=== PATIENT | female | born 1935 | race Caucasian/White ===

== ENCOUNTER 2016-07-06 12:11 | Emergency (ER) | payer MEDICARE, MEDICAID ==
[~2016-07-06] VITALS: Ht 167.6 cm; Wt 76.7 kg
[~2016-07-06 12:11] MED LIST: ASPI-869 PO; CLOP75TA2 PO; FAMO40TA7 PO
[2016-07-06 12:12] VITALS: BP 105/76
--- NOTE | 2016-07-06 12:23 | NUR ---
JOSE G WILDE AT BEDSIDE FOR EVAL.
[2016-07-06] MEDS ORDERED: KETOROLAC TROMETHAMINE INJ 30 MG/ML VIAL ONE (12:47)
[2016-07-06] MEDS: KETOROLAC TROMETHAMINE INJ 60 MG/2 ML VIAL IM ONE (12:54)
--- NOTE | 2016-07-06 13:45 | NUR ---
PT ROAD TESTED. AMBULATED W/ STEADY GAIT. JOSE G WILDE AWARE.
--- NOTE | 2016-07-06 13:52 | NUR ---
CALLED [facility] FOR TRANSPORTATION TO [facility] ETA [id number]
== END 2016-07-06 15:21 | disposition home or self-care (01) ==
LOC: ER 12:13
DX: S39.012A Strain of muscle, fascia and tendon of lower back, initial encounter (principal); F32.9 Major depressive disorder, single episode, unspecified; F41.9 Anxiety disorder, unspecified; Z79.82 Long term (current) use of aspirin; Z86.73 Personal history of transient ischemic attack (TIA), and cerebral infarction without residual deficits; Z95.5 Presence of coronary angioplasty implant and graft; X58.XXXA Exposure to other specified factors, initial encounter; Y92.89 Other specified places as the place of occurrence of the external cause; Y93.89 Activity, other specified; Y99.8 Other external cause status
CPT/HCPCS: 96372; 99283; A4606; J1885; Z7610

== ENCOUNTER 2017-04-01 15:40 | Inpatient (IN) | payer MEDICARE, MEDICAID ==
[~2017-04-01] VITALS: Ht 144.8 cm; Wt 81.6 kg
[~2017-04-01 15:40] MED LIST changes: +CLOP75TA15 PO; -CLOP75TA2 PO
--- NOTE | 2017-04-01 16:30 | NUR ---
BIB PRIVATE EMT FOR COUGH AND CONGESTION,DR HAAS WANTS INFLUENZA SWAB. A/OX3, NAD VSS RR EVEN AND UNLABORED. KEPT COFMORTABLE. SEEN AND EVALUATED BY ER
[2017-04-01 16:33] LABS: BASOPHILS % (AUTO) 0.3 % (0.0-2.0); EOSINOPHILS % (AUTO) 0.9 % (0.0-6.0); HEMATOCRIT 42 % (33-45); HEMOGLOBIN 13.7 g/dL (11.5-14.8); LYMPHOCYTES # (AUTO) 0.4 /CMM (0.8-4.8); LYMPHOCYTES % (AUTO) 8.8 % (20.0-44.0); MEAN CORPUSCULAR HEMOGLOBIN 29 PG (26.0-33.0); MEAN CORPUSCULAR HGB CONC 33 g/dl (31.0-36.0); MEAN CORPUSCULAR VOLUME 87 fL (82-100); MONOCYTES # (AUTO) 0.4 /CMM (0.1-1.30); MONOCYTES % (AUTO) 8.3 % (2.0-12.0); NEUTROPHILS # (AUTO) 3.7 /CMM (1.8-8.9); NEUTROPHILS % (AUTO) 81.7 % (43.0-81.0); PLATELET COUNT (AUTO) 201 /CMM (150-450); RDW COEFFICIENT OF VARIATION 13.4 (11.5-15.0); RED BLOOD CELL COUNT(AUTO) 4.79 MIL/uL (4.0-5.2); WHITE BLOOD COUNT (AUTO) 4.5 K/uL (4.3-11.0)
[2017-04-01 16:44] LABS: CALCIUM, SERUM 8.9 mg/dL (8.5-10.1); CARBON DIOXIDE 27 mmol/L (21-32); CHLORIDE 103 mmol/L (98-107); GLUCOSE 115 mg/dL (74-106); POTASSIUM 3.9 mmol/L (3.5-5.1); SODIUM SERUM 140 mmol/L (136-145); UREA NITROGEN, BLOOD 14 mg/dL (7-18)
[2017-04-01 16:50] LABS: ALANINE AMINOTRANSFERASE 22 U/L (12-78); ALBUMIN 3.4 g/dL (3.4-5.0); ALKALINE PHOSPHATASE 109 U/L (46-116); ASPARTATE AMINOTRANSFERASE 23 U/L (15-37); BILIRUBIN,DIRECT 0.1 mg/dL (0.0-0.2); BILIRUBIN,TOTAL 0.4 mg/dL (0.2-1.0); TOTAL PROTEIN, SERUM 7.2 g/dL (6.4-8.2)
[2017-04-01 16:52] LABS: TROPONIN I < 0.017 ng/mL (0.00-0.056)
[2017-04-01 16:55] LABS: INR 0.96 (0.87-1.13)
[2017-04-01] MEDS ORDERED: PRAM0.253 PO (16:57)
[2017-04-01] MEDS ORDERED: FLUT12AE5 IH (16:57)
[2017-04-01] MEDS ORDERED: TRAM50TA2 PO (16:57)
[2017-04-01] MEDS ORDERED: ESOM40CA PO (16:57)
[2017-04-01] MEDS ORDERED: AMLO10TA2 PO (16:57)
[2017-04-01] MEDS ORDERED: TRAZ-144 PO (16:57)
[2017-04-01] MEDS ORDERED: ALBU18HF2 IH (16:57)
[2017-04-01] MEDS ORDERED: SIMV40TA5 PO (16:57)
[2017-04-01] MEDS ORDERED: CEFTRIAXONE 1GM BAG (ER ONLY) 50 ML IV ONE ×2 (17:00→17:04)
[2017-04-01] MEDS ORDERED: AZITHROMYCIN 500 MG in IV D5W 250 ML IV ONE (17:00)
[2017-04-01] MEDS ORDERED: OSELTAMIVIR PHOSPHATE 75 MG CAPSULE PO ONE (17:00)
[2017-04-01] MEDS ORDERED: OSELTAMIVIR PHOSPHATE 75 MG CAPSULE ONE (17:05)
--- NOTE | 2017-04-01 17:11 | NUR ---
TELE ROOM 304-2
[2017-04-01] MEDS ORDERED: IPRATROPIUM NEB FS 0.5 MG/2.5 ML AMPUL.NEB ONE (17:15)
[2017-04-01] MEDS ORDERED: ALBUTEROL FS 2.5 MG/3 ML VIAL.NEB ONE (17:15)
[2017-04-01] MEDS ORDERED: IPRATROPIUM NEB FS 0.5 MG/2.5 ML AMPUL.NEB NEB ONE (17:30)
[2017-04-01] MEDS ORDERED: ALBUTEROL FS 2.5 MG/3 ML VIAL.NEB NEB ONE (17:30)
--- NOTE | 2017-04-01 17:38 | NUR ---
REPORT GIVEN TO SCOT CASTAÑEDA FOR CONT OF CARE
[2017-04-01] MEDS ORDERED: ALBUTEROL FS 2.5 MG/3 ML VIAL.NEB NEB PRN (18:00)
[2017-04-01] MEDS ORDERED: Z GUARD REMEDY 2 OZ OINT TP PRN (18:00)
[2017-04-01] MEDS ORDERED: MAG HYDROX/AL HYDROX/SIMETH 30 ML UDC PO PRN (18:00)
[2017-04-01] MEDS ORDERED: MAGNESIUM HYDROXIDE 30 ML UDC PO PRN (18:00)
[2017-04-01] MEDS ORDERED: ACETAMINOPHEN 325 MG TABLET PO PRN (18:00)
[2017-04-01] MEDS ORDERED: ALBUTEROL SULFATE 8 GM HFA.AER.AD IH PRN (18:00)
[2017-04-01] MEDS ORDERED: TRAMADOL HCL 50 MG TABLET PO PRN (18:00)
[2017-04-01] MEDS ORDERED: ONDANSETRON HCL/PF 4 MG/2 ML VIAL IVP PRN (18:00)
--- NOTE | 2017-04-01 18:01 | NUR ---
TRANSFERRED TO FLOOR VIA ACLS PROTOCOL
--- NOTE | 2017-04-01 18:20 | NUR ---
EDITOR NEWS NOTES RECEIVED PATIENT IN BED SEEN AMBULATING TO USE BATHROOM. PATIENT ALERT, ORIENTED X3. NOTED WITH PRODUCTIVE COUGH. PATIENT WITH PERIPHERAL IV ON LEFT AC INTACT PATENT. PATIENT ORIENTED TO ROOM. CALL LIGHT WITHIN REACH . BED IN LOW LOCKED POSITION. WILL CONTINUE TO MONITOR.
[2017-04-01] MEDS: IV D5W 1,000 ML IV PRN (18:29)
[2017-04-01] MEDS: PRAMIPEXOLE DI-HCL 0.25 MG TABLET PO SCH (18:31)
[2017-04-01] MEDS: ENOXAPARIN SODIUM 30 MG/0.3 ML DISP.SYRIN SQ SCH (18:31)
[2017-04-01] MEDS: PIPERACILLIN /TAZOBACTAM 3.375 G in IV D5W 50 ML IV SCH (19:14)
--- NOTE | 2017-04-01 19:30 | NUR ---
RN OPENING NOTES PATIENT IS SLEEPING IN BED, EASY TO AROUSE, ALERT AND ORIENTED X3. VS STABLE. NO SOB NOTED. RESPIRATIONS EVEN AND UNLABORED. IV ACCESS ON LAC PATENT AND INTACT. NO REDNESS OR INFILTRATION NOTED. TELE MONITOR IS IN PLACE, SR 80 BMP. BED IN LOW AND LOCKED POSITION, SIDE RAILS X2. CALL LIGHT WITHIN EASY REACH. WILL CONTINUE TO MONITOR AND ASSESS DURING THE SHIFT.
--- NOTE | 2017-04-01 19:30 | NUR ---
RN OPENING NOTES PATIENT IS SLEEPING IN BED, EASY TO AROUSE, ALERT AND ORIENTED X3. VS STABLE. NO SOB NOTED. RESPIRATIONS EVEN AND UNLABORED. IV ACCESS ON LAC PATENT AND INTACT, INFUSING NS AT 75 ML/HR. NO RED NE
--- NOTE | 2017-04-01 19:38 | NUR ---
MARINE STEWARD NOTES PATIENT IN BED RESTING NO SOB OR ACUTE DISTRESS NOTED. ALL DUE MEDICATIONS ADMINISTERED. ALL NEEDS MET. PATIENT NOTED EATING DINNER. WILL ENDORSE CARE TO PM SHIFT.
[2017-04-01 20:00] VITALS: BP_SYST 125; BP_SYST 131; BP_DIAS 51; BP_DIAS 85
[2017-04-01] MEDS ORDERED: PIPERACILLIN /TAZOBACTAM 4.5 G in IV D5W 50 ML IV SCH (21:00)
[2017-04-01] MEDS: SIMVASTATIN 40 MG TABLET PO SCH (22:05)
[2017-04-01] MEDS: TRAZODONE 50 MG TABLET PO SCH (22:05)
[2017-04-01] MEDS: GUAIFENESIN/D-METHORPHAN HB 5 ML UDC PO PRN (22:27)
[2017-04-02] VITALS: BP 141/78
[2017-04-02] MEDS: PIPERACILLIN /TAZOBACTAM 3.375 G in IV D5W 50 ML IV SCH ×5 (00:43→23:31)
[2017-04-02 04:00] VITALS: BP 121/59
[2017-04-02 06:30] LABS: BASOPHILS % (AUTO) 0.6 % (0.0-2.0); EOSINOPHILS % (AUTO) 1.2 % (0.0-6.0); HEMATOCRIT 37 % (33-45); HEMOGLOBIN 12.4 g/dL (11.5-14.8); LYMPHOCYTES # (AUTO) 0.7 /CMM (0.8-4.8); LYMPHOCYTES % (AUTO) 19.8 % (20.0-44.0); MEAN CORPUSCULAR HEMOGLOBIN 29 PG (26.0-33.0); MEAN CORPUSCULAR HGB CONC 33 g/dl (31.0-36.0); MEAN CORPUSCULAR VOLUME 87 fL (82-100); MONOCYTES # (AUTO) 0.4 /CMM (0.1-1.30); MONOCYTES % (AUTO) 12.2 % (2.0-12.0); NEUTROPHILS # (AUTO) 2.2 /CMM (1.8-8.9); NEUTROPHILS % (AUTO) 66.2 % (43.0-81.0); PLATELET COUNT (AUTO) 169 /CMM (150-450); RDW COEFFICIENT OF VARIATION 13.2 (11.5-15.0); RED BLOOD CELL COUNT(AUTO) 4.25 MIL/uL (4.0-5.2); WHITE BLOOD COUNT (AUTO) 3.3 K/uL (4.3-11.0)
[2017-04-02] MEDS: GUAIFENESIN/D-METHORPHAN HB 5 ML UDC PO PRN (06:41)
[2017-04-02 06:55] LABS: CALCIUM, SERUM 8.3 mg/dL (8.5-10.1); CARBON DIOXIDE 28 mmol/L (21-32); CHLORIDE 104 mmol/L (98-107); GLUCOSE 95 mg/dL (74-106); MAGNESIUM 1.8 mg/dL (1.8-2.4); PHOSPHORUS 4.3 mg/dL (2.5-4.9); POTASSIUM 3.7 mmol/L (3.5-5.1); SODIUM SERUM 139 mmol/L (136-145); UREA NITROGEN, BLOOD 12 mg/dL (7-18)
--- NOTE | 2017-04-02 07:00 | NUR ---
RN CLOSING NOTES PATIENT IS IN BED, ALERT AND ORIENTED X3. VS STABLE. RESPIRATIONS EVEN AND UNLABORED. IV ACCESS ON LAC PATENT AND INTACT. NO REDNESS OR INFILTRATION NOTED. TELE MONITOR IS IN PLACE, SR 72 BMP. NON PRODUCTIVE COUGH NOTED, ROBITUSSIN 5 ML ADMINISTERED. ALL NEEDS ARE MET AND MEDICATIONS ADMINISTERED PER MD ORDER. BED IN LOW AND LOCKED POSITION, SIDE RAILS X2. CALL LIGHT WITHIN EASY REACH. WILL ENDORSE TO RN DAY SHIFT FOR JUNI.
[2017-04-02 08:00] VITALS: BP 110/51
[2017-04-02] MEDS: AMLODIPINE BESYLATE 10 MG TABLET PO SCH (09:00)
[2017-04-02] MEDS: FLUTICASONE 110MCG 1 EA INHALER IH SCH ×2 (09:42→17:35)
[2017-04-02] MEDS: HYDROCODONE/APAP 5/325MG 1 EACH TABLET PO PRN ×2 (12:45→17:49)
--- NOTE | 2017-04-02 15:15 | NUR ---
CORDARONE NOT GIVEN,SON STATES HAD IN AM. Addendum: 04/02/17 at 1516 by TONA SELBY RN INFO TO BE ON ANOTHER PT.
[2017-04-02 16:00] VITALS: BP 113/57
[2017-04-02] MEDS: OSELTAMIVIR PHOSPHATE 75 MG CAPSULE PO SCH ×2 (17:35→21:09)
[2017-04-02] MEDS: PRAMIPEXOLE DI-HCL 0.25 MG TABLET PO SCH (17:36)
--- NOTE | 2017-04-02 18:30 | NUR ---
MEDICATED X 2 FOR BACK PAIN WITH NORCO.PT. STATUS QUO.VERY COOPERATIVE AND MED COMPLIANT.
--- NOTE | 2017-04-02 19:40 | NUR ---
MS RN INITIAL NOTES PT IS IN BED SLEEPING, EASILY AROUSED. STATES THAT SHE IS FEELING BETTER AFTER THE MEDICATIONS GIVEN ON DAY SHIFT. IV ACCESS IS INTACT AND PATENT. PT IS NOT COUGHING AT THE MOMENT.BED IS IN LOW AND LOCKED POSITION, CALL LIGHT WITHIN REACH. WILL CONTINUE TO MONITOR PT.
[2017-04-02 19:53] VITALS: BP 112/61
[2017-04-02] MEDS: TRAZODONE 50 MG TABLET PO SCH (21:09)
[2017-04-02] MEDS: IV D5W 1,000 ML IV PRN (21:09)
[2017-04-02] MEDS: SIMVASTATIN 40 MG TABLET PO SCH (21:09)
[2017-04-02] MEDS: ENOXAPARIN SODIUM 30 MG/0.3 ML DISP.SYRIN SQ SCH (21:11)
[2017-04-03] MEDS: HYDROCODONE/APAP 5/325MG 1 EACH TABLET PO PRN ×4 (00:56→20:39)
[2017-04-03] MEDS: PIPERACILLIN /TAZOBACTAM 3.375 G in IV D5W 50 ML IV SCH ×4 (05:17→23:30)
--- NOTE | 2017-04-03 06:11 | NUR ---
MS RN CLOSING NOTES PT IS IN BED SLEEPING, EASILY AROUSED. NO SIGNS OF SOB OR DISTRESS, BREATHING EVENLY AND UNLABORED WITH NC. NEW IV WAS STARTED ON LEFT WRIST, WITH FLUIDS INFUSING. NO ACUTE CHANGES THROUGHOUT THE SHIFT. ALL NEEDS WERE ANTICIPATED AND MET. BED IS IN LOW AND LOCKED POSITION CALL LIGHT WITHIN REACH, WILL ENDORSE TO DAYSHIFT.
[2017-04-03 06:42] LABS: BASOPHILS % (AUTO) 0.7 % (0.0-2.0); EOSINOPHILS # (AUTO) 0.1 /CMM (0.0-0.7); EOSINOPHILS % (AUTO) 4.5 % (0.0-6.0); HEMATOCRIT 38 % (33-45); HEMOGLOBIN 12.5 g/dL (11.5-14.8); LYMPHOCYTES # (AUTO) 1.3 /CMM (0.8-4.8); LYMPHOCYTES % (AUTO) 43.7 % (20.0-44.0); MEAN CORPUSCULAR HEMOGLOBIN 29 PG (26.0-33.0); MEAN CORPUSCULAR HGB CONC 33 g/dl (31.0-36.0); MEAN CORPUSCULAR VOLUME 87 fL (82-100); MONOCYTES # (AUTO) 0.4 /CMM (0.1-1.30); MONOCYTES % (AUTO) 14.5 % (2.0-12.0); NEUTROPHILS # (AUTO) 1.1 /CMM (1.8-8.9); NEUTROPHILS % (AUTO) 36.6 % (43.0-81.0); PLATELET COUNT (AUTO) 177 /CMM (150-450); RDW COEFFICIENT OF VARIATION 13.6 (11.5-15.0); WHITE BLOOD COUNT (AUTO) 2.9 K/uL (4.3-11.0)
[2017-04-03 07:05] LABS: CARBON DIOXIDE 29 mmol/L (21-32); CHLORIDE 104 mmol/L (98-107); CREATININE 0.9 mg/dL (0.6-1.3); GLUCOSE 95 mg/dL (74-106); MAGNESIUM 1.9 mg/dL (1.8-2.4); PHOSPHORUS 4.1 mg/dL (2.5-4.9); POTASSIUM 3.7 mmol/L (3.5-5.1); SODIUM SERUM 140 mmol/L (136-145); UREA NITROGEN, BLOOD 13 mg/dL (7-18)
--- NOTE | 2017-04-03 07:31 | NUR ---
MS RN: INITIAL NOTE RECEIVED PT A/OX3. MS. USES DIAPER. AMBULATES WITH ASSIST. VISION IS NORMALLY BLURRED. SKIN INTACT. L WRIST #22 RUNNING D5 @ 70ML/HR. SITE CLEAR AND PATENT. NO DISTRESS NOTED. NO SOB NOTED. NO PAIN NOTED. RESTING COMFORTABLY IN BED. CALL LIGHT WITHIN REACH.
[2017-04-03 08:00] VITALS: BP 117/54
[2017-04-03] MEDS: OSELTAMIVIR PHOSPHATE 75 MG CAPSULE PO SCH ×2 (08:23→17:13)
[2017-04-03] MEDS: AMLODIPINE BESYLATE 10 MG TABLET PO SCH (08:24)
[2017-04-03] MEDS: FLUTICASONE 110MCG 1 EA INHALER IH SCH ×2 (08:24→17:14)
[2017-04-03 09:49] LABS: BAND % (MANUAL) 1 % (0.0-5.0); EOSINOPHILS % (MANUAL) 1 % (0-4); LYMPHOCYTES % (MANUAL) 47 % (16-48); MONOCYTES % (MANUAL) 4 % (0-11.0); NEUTROPHILS % (MANUAL) 47 (42-76)
[2017-04-03] MEDS: IV D5W 1,000 ML IV PRN (11:55)
[2017-04-03] MEDS ORDERED: HYDROCODONE BIT/HOMATROPINE 5 ML UDC PO PRN (15:00)
[2017-04-03] MEDS: PRAMIPEXOLE DI-HCL 0.25 MG TABLET PO SCH (17:13)
[2017-04-03 17:55] VITALS: BP 133/82
[2017-04-03 18:36] VITALS: BP 133/82
--- NOTE | 2017-04-03 18:37 | NUR ---
MS RN: CLOSING NOTE PT TOOK ALL MEDICATIONS ON TIME. NO ADVERSE REACTIONS NOTED. PAIN CONTROLLED WITH PAIN MEDICATIONS. NO DISTRESS NOTED. NO SOB NOTED. ON 2L NS SATING AT 95%. A/OX3. HAS MACULAR DEGENERATION. CAN SEE ONLY PERIPHERALLY. SEES SHADOWS OTHERWISE. CONTINENT. USES DIAPER AND BRP WITH ASSIST. AMBULATES WITH ASSIST. L WRSOT #22 RUNNING D5 @75ML/HR. SITE CLEAR AND PATENT. RESTING COMFORTABLY IN BED. CALL LIGHT WITHIN REACH.
[2017-04-03 20:00] VITALS: BP 119/65
--- NOTE | 2017-04-03 20:01 | NUR ---
RN NOTES RECEIVED PATIENT IN BED, ALERT AND ORIENTED X3, CALM, NO SOB, NO DISTRESS, NO COMPLAIN OF PAIN AT THIS TIME, TOLERATING 2LPM VIA NC, HYO572%, LEFT WRIST PERIPHERAL LINE IS PATENT AND INFUSING WELL, WITH MACULAR DEGENERATION, ABLE TO SEE PERIPHERALLY, REQUIRES ASSISTANCE WITH AMBULATION. REPOSITIONED FOR COMFORT, CALL LIGHT WITHIN REACH.
[2017-04-03 20:06] VITALS: BP 119/65
[2017-04-03] MEDS: ENOXAPARIN SODIUM 30 MG/0.3 ML DISP.SYRIN SQ SCH (20:35)
[2017-04-03] MEDS: SIMVASTATIN 40 MG TABLET PO SCH (21:16)
[2017-04-03] MEDS: TRAZODONE 50 MG TABLET PO SCH (21:16)
[2017-04-04] MEDS: HYDROCODONE/APAP 5/325MG 1 EACH TABLET PO PRN ×3 (02:27→13:43)
[2017-04-04] MEDS: IV D5W 1,000 ML IV PRN (02:35)
[2017-04-04] MEDS: PIPERACILLIN /TAZOBACTAM 3.375 G in IV D5W 50 ML IV SCH (06:14)
--- NOTE | 2017-04-04 06:44 | NUR ---
RN NOTES PATIENT IN BED, ALERT AND AWAKE, NO SOB, NO DISTRESS, TOLERATING 2LPM VIA NC, PROVIDED PAIN MEDICATION DURING SHIFT, NO RESIDUAL DROWSINESS FROM NORCO, PROVIDED GOOD PERINEAL CARE, ALL NEEDS ATTENDED, CALL LIGHT WITHIN REACH.
--- NOTE | 2017-04-04 07:45 | NUR ---
RN OPENING NOTES RECEIVED PT. IN BED SLEEPING. BREATHING UNLABORED, AND EVENLY ON OXYGEN AT 2L/MIN. NO S/S OF ACUTE DISTRESS. IV FLUIDS RUNNING AT 75 ML/HR. BED IS IN LOWEST, AND LOCKED POSITION. 2 SIDE RAILS UP, AND CALL LIGHT WITHIN REACH. WILL CONTINUE TO ASSESS AND MONITOR.
[2017-04-04 08:00] VITALS: BP 112/57
[2017-04-04 08:35] VITALS: BP 112/57
[2017-04-04] MEDS: OSELTAMIVIR PHOSPHATE 75 MG CAPSULE PO SCH (08:35)
[2017-04-04] MEDS: AMLODIPINE BESYLATE 10 MG TABLET PO SCH (08:35)
[2017-04-04] MEDS: FLUTICASONE 110MCG 1 EA INHALER IH SCH (08:37)
[2017-04-04] MEDS ORDERED: IV D5W 1,000 ML IV PRN (11:27)
--- NOTE | 2017-04-04 14:12 | NUR ---
RN NOTES PT. WAS HAVING DIARRHEA THIS MORNING. REPORTED EPISODE TO DR. HAAS VIA PHONE, NO NEW ORDERS GIVEN BEFORE DISCHARGE. EXPLAINED TO PT. TO FOLLOW UP WITH DR. HAAS OUTPATIENT AND PT. VERBALIZED UNDERSTANDING.
--- NOTE | 2017-04-04 14:14 | NUR ---
PRACTICAL NURSING INSTRUCTOR NOTES PROVIDED PT. DISCHARGE INSTRUCTIONS AND EDUCATIONS, AND PT. VERBALIZED UNDERSTANDING. . DISCHARGE PAPERS SIGNED. PT. WAS DISCHARGED IN MEDICALLY STABLE CONDITION BY AMBULANCE CREW. REPORT WAS GIVEN TO VALENTE AT [facility]. TALKED TO PT.'S SON, JOCELYN TO INFORM ABOUT TRANSFER TODAY. ALL QUESTIONS ANSWERED. BELONGINGS LIST WAS CHECKED AND SIGNED. ID BAND, AND IV WAS REMOVED WITHOUT COMPLICATIONS. MEDICATIONS, AND MEDICATION LIST WAS GIVEN TO PT. WITH ALL DISCHARGE PAPERS SIGNED IN PACKET.
== END 2017-04-04 14:36 | DRG 193 ==
LOC: ER 15:42 → TELE 17:47 → MED 04-02 08:58
PROVIDERS: ADMIT Internal Medicine; ATTEND Internal Medicine
DX: J12.9 Viral pneumonia, unspecified (principal); J96.90 Respiratory failure, unspecified, unspecified whether with hypoxia or hypercapnia; I82.409 Acute embolism and thrombosis of unspecified deep veins of unspecified lower extremity; D70.9 Neutropenia, unspecified; E44.1 Mild protein-calorie malnutrition; J44.0 Chronic obstructive pulmonary disease with (acute) lower respiratory infection; J10.08 Influenza due to other identified influenza virus with other specified pneumonia; I10 Essential (primary) hypertension; Z86.73 Personal history of transient ischemic attack (TIA), and cerebral infarction without residual deficits; Z79.899 Other long term (current) drug therapy; Z79.82 Long term (current) use of aspirin; K21.9 Gastro-esophageal reflux disease without esophagitis; Z79.51 Long term (current) use of inhaled steroids; I25.10 Atherosclerotic heart disease of native coronary artery without angina pectoris; F41.9 Anxiety disorder, unspecified; E78.5 Hyperlipidemia, unspecified; F32.9 Major depressive disorder, single episode, unspecified; J20.9 Acute bronchitis, unspecified; G25.81 Restless legs syndrome; G89.29 Other chronic pain; R53.81 Other malaise; Z96.659 Presence of unspecified artificial knee joint; E66.9 Obesity, unspecified; Z68.39 Body mass index [BMI] 39.0-39.9, adult
CPT/HCPCS: 36415; 71010-TC; 80048-TC; 80076-TC; 83605-TC; 83735-TC; 84100-TC; 84484-TC; 85025-TC; 85730-TC; 87040-TC; 87081-TC; 87400; J0456; J0696; J1650; J2543; J7060; J7070

== ENCOUNTER 2017-04-23 16:50 | Emergency (ER) | payer MEDICARE, MEDICAID ==
[~2017-04-23] VITALS: Ht 165.1 cm; Wt 81.6 kg
[~2017-04-23 16:50] MED LIST changes: +ALBU18HF2 IH; +AMLO10TA2 PO; -ASPI-869 PO; -CLOP75TA15 PO; +ESOM40CA PO; -FAMO40TA7 PO; +FLUT12AE5 IH; +PRAM0.253 PO; +SIMV40TA5 PO; +TRAM50TA2 PO; +TRAZ-144 PO
[2017-04-23 17:47] LABS: BASOPHILS # (AUTO) 0.3 /CMM (0.0-0.2); BASOPHILS % (AUTO) 3.4 % (0.0-2.0); EOSINOPHILS # (AUTO) 0.1 /CMM (0.0-0.7); EOSINOPHILS % (AUTO) 1.9 % (0.0-6.0); HEMATOCRIT 41 % (33-45); LYMPHOCYTES # (AUTO) 1.4 /CMM (0.8-4.8); LYMPHOCYTES % (AUTO) 18.5 % (20.0-44.0); MEAN CORPUSCULAR HEMOGLOBIN 29 PG (26.0-33.0); MEAN CORPUSCULAR HGB CONC 34 g/dl (31.0-36.0); MEAN CORPUSCULAR VOLUME 85 fL (82-100); MONOCYTES # (AUTO) 0.6 /CMM (0.1-1.30); MONOCYTES % (AUTO) 8.8 % (2.0-12.0); NEUTROPHILS % (AUTO) 67.4 % (43.0-81.0); PLATELET COUNT (AUTO) 277 /CMM (150-450); RDW COEFFICIENT OF VARIATION 12.4 (11.5-15.0); RED BLOOD CELL COUNT(AUTO) 4.87 MIL/uL (4.0-5.2); WHITE BLOOD COUNT (AUTO) 7.4 K/uL (4.3-11.0)
[2017-04-23 17:56] LABS: CALCIUM, SERUM 9.6 mg/dL (8.5-10.1); CARBON DIOXIDE 28 mmol/L (21-32); CHLORIDE 98 mmol/L (98-107); CREATININE 0.9 mg/dL (0.6-1.3); GLUCOSE 102 mg/dL (74-106); POTASSIUM 4.1 mmol/L (3.5-5.1); SODIUM SERUM 133 mmol/L (136-145); UREA NITROGEN, BLOOD 12 mg/dL (7-18)
[2017-04-23] MEDS: DIAZEPAM 10 MG TABLET PO ONE (18:37)
--- NOTE | 2017-04-23 20:53 | NUR ---
CALLED DR CLARKE ANSWERING SERVICE, LEFT A VOICEMAIL.
[2017-04-23] MEDS: MAGNESIUM OXIDE 400 MG TABLET PO ONE (21:23)
--- NOTE | 2017-04-23 22:16 | NUR ---
REPORT GIVEN TO EMT
[2017-04-23 22:17] VITALS: BP 162/97
== END 2017-04-23 22:18 ==
LOC: ER 16:51
DX: F41.9 Anxiety disorder, unspecified (principal); M62.838 Other muscle spasm; E83.42 Hypomagnesemia; E78.5 Hyperlipidemia, unspecified; F32.9 Major depressive disorder, single episode, unspecified; G43.909 Migraine, unspecified, not intractable, without status migrainosus; F10.10 Alcohol abuse, uncomplicated; G89.29 Other chronic pain; R51 Headache; I10 Essential (primary) hypertension; I25.10 Atherosclerotic heart disease of native coronary artery without angina pectoris; J32.3 Chronic sphenoidal sinusitis; Z86.73 Personal history of transient ischemic attack (TIA), and cerebral infarction without residual deficits
CPT/HCPCS: 36415; 70450; 80048; 83735; 85025; 99285; A4606; Z7610

== ENCOUNTER 2018-03-25 09:44 | Inpatient (IN) | payer MEDICARE, MEDICAID ==
[~2018-03-25] VITALS: Ht 144.8 cm; Wt 96.2 kg
[~2018-03-25 09:44] MED LIST changes: -AMLO10TA2 PO; +AMLO10TA6 PO; -TRAZ-144 PO; +TRAZ-182 PO
--- NOTE | 2018-03-25 09:56 | NUR ---
ARIELA 82 YEAR OLD FEMALE FROM [facility] C/O PAINFUL URINATION COMPLETED ATB FOR UTI LAST SATURDAY. ALERT AND OREINTED X4, BREATHING EVEN AND UNALBORED. PATIENT ABLE TO AMBULATE WITH ASSIST. NOTED WITH BLE EDEMA AND DRY SKIN. AWAITNG TO BE SEEN BY
[2018-03-25] MEDS ORDERED: IV NS 0.9% 1,000 ML BAG IV ONE (10:00)
[2018-03-25 10:16] LABS: APPEARANCE,URINE Clear (CLEAR); BILIRUBIN,URINE Negative (NEGATIVE); BLOOD, URINE Large Ery/uL (NEGATIVE); COLOR,URINE Yellow (YELLOW); KETONES,URINE Negative (NEGATIVE); LEUKOCYTE ESTERASE ,URINE Moderate (NEGATIVE); NITRITE, URINE Positive (NEGATIVE); PROTEIN,URINE 100 mg/dl (NEGATIVE); UGLUCOSE Negative (NEGATIVE)
[2018-03-25] MEDS ORDERED: ALBUTEROL FS 2.5 MG/3 ML VIAL.NEB ONE (10:17)
[2018-03-25] MEDS ORDERED: IPRATROPIUM NEB FS 0.5 MG/2.5 ML AMPUL.NEB ONE (10:17)
[2018-03-25 10:18] LABS: BACTERIA,URINE 1+ /HPF (None Seen); SQUAMOUS EPITHELIAL CELL,UR Moderate /HPF (None Seen)
--- NOTE | 2018-03-25 10:20 | NUR ---
RT AT BEDSIDE TO GIVE PATIENT BREATHING TX ORDERED
[2018-03-25] MEDS ORDERED: ALBUTEROL FS 2.5 MG/3 ML VIAL.NEB CONTNEB ONE (10:30)
[2018-03-25] MEDS ORDERED: IPRATROPIUM NEB FS 0.5 MG/2.5 ML AMPUL.NEB NEB ONE (10:30)
[2018-03-25] MEDS ORDERED: methylPREDNISolone SOD SUCC 125 MG/2ML VIAL IV ONE (10:30)
[2018-03-25] MEDS ORDERED: methylPREDNISolone SOD SUCC 125 MG/2ML VIAL ONE (10:31)
[2018-03-25] MEDS ORDERED: CEFEPIME 1 GM in IV D5W 50 ML IV ONE (11:00)
[2018-03-25 11:03] LABS: BASOPHILS # (AUTO) 0.1 /CMM (0.0-0.2); BASOPHILS % (AUTO) 0.8 % (0.0-2.0); EOSINOPHILS % (AUTO) 8.8 % (0.0-6.0); HEMATOCRIT 44 % (33-45); HEMOGLOBIN 14.8 g/dL (11.5-14.8); LYMPHOCYTES # (AUTO) 1.3 /CMM (0.8-4.8); MEAN CORPUSCULAR HGB CONC 33 g/dl (31.0-36.0); MEAN CORPUSCULAR VOLUME 89 fL (82-100); MONOCYTES # (AUTO) 0.6 /CMM (0.1-1.30); MONOCYTES % (AUTO) 7.5 % (2.0-12.0); NEUTROPHILS # (AUTO) 5.7 /CMM (1.8-8.9); NEUTROPHILS % (AUTO) 67.9 % (43.0-81.0); PLATELET COUNT (AUTO) 195 /CMM (150-450); RED BLOOD CELL COUNT(AUTO) 4.95 MIL/uL (4.0-5.2); WHITE BLOOD COUNT (AUTO) 8.4 K/uL (4.3-11.0)
[2018-03-25] MEDS ORDERED: CEFEPIME 1 GM VIAL ONE (11:04)
[2018-03-25 11:11] LABS: CALCIUM, SERUM 9.4 mg/dL (8.5-10.1); CARBON DIOXIDE 29 mmol/L (21-32); CHLORIDE 104 mmol/L (98-107); GLUCOSE 110 mg/dL (74-106); POTASSIUM 4.2 mmol/L (3.5-5.1); SODIUM SERUM 140 mmol/L (136-145); UREA NITROGEN, BLOOD 18 mg/dL (7-18)
[2018-03-25 11:16] LABS: ALANINE AMINOTRANSFERASE 15 U/L (12-78); ALBUMIN 3.4 g/dL (3.4-5.0); ALKALINE PHOSPHATASE 142 U/L (46-116); ASPARTATE AMINOTRANSFERASE 15 U/L (15-37); BILIRUBIN,DIRECT 0.1 mg/dL (0.0-0.2); BILIRUBIN,TOTAL 0.6 mg/dL (0.2-1.0); LIPASE 173 U/L (73-393); TOTAL PROTEIN, SERUM 7.2 g/dL (6.4-8.2)
--- NOTE | 2018-03-25 11:23 | NUR ---
DR. HAAS CALLED
--- NOTE | 2018-03-25 11:25 | NUR ---
GOT [facility] BED 309-2
[2018-03-25 11:36] LABS: B-TYPE NATRIURETIC PEPTIDE 225 PG/ML (0-125)
--- NOTE | 2018-03-25 11:45 | NUR ---
DR. HAAS CALLED
[2018-03-25] MEDS ORDERED: FLUT1DIS3 IH (11:52)
[2018-03-25] MEDS ORDERED: ALBU18HF2 IH (11:52)
[2018-03-25] MEDS ORDERED: IPRA12.9 IH (11:52)
[2018-03-25] MEDS ORDERED: FERR325T6 PO (11:52)
[2018-03-25] MEDS ORDERED: METO-357 PO (11:52)
[2018-03-25] MEDS ORDERED: POTA20TA83 PO (11:52)
[2018-03-25] MEDS ORDERED: NITR100C11 PO (11:52)
[2018-03-25] MEDS ORDERED: PRAM1TAB3 PO (11:52)
[2018-03-25] MEDS ORDERED: DICL100G16 TP (11:52)
[2018-03-25] MEDS ORDERED: ERGO500014 PO (11:52)
[2018-03-25] MEDS ORDERED: ATOR10TA PO (11:52)
[2018-03-25] MEDS ORDERED: ASPI-1152 PO (11:52)
--- NOTE | 2018-03-25 11:59 | NUR ---
CALLED TO GIVE REPORT ON 3RD FLOOR. RN STATED TO CALL BACK SHE IS BUSY WITH ANOTHER ADMISSION. WILL CALL BACK TO FOLLOW UP
[2018-03-25 12:00] VITALS: BP 130/68
--- NOTE | 2018-03-25 12:00 | NUR ---
PATIENT REMAINS STABLE WITH NO DISTRESS NOTED.
--- NOTE | 2018-03-25 12:00 | NUR ---
DR. HAAS CALLED
--- NOTE | 2018-03-25 12:40 | NUR ---
REPORT GIVEN TO VANCE CASTAÑEDA, PATIENT WILL BE TRANSFERRED TO ROOM 309
--- NOTE | 2018-03-25 13:00 | NUR ---
TELE/CUSTOMER SERVICE ASSISTANT PATIENT ADMITTED FROM ER FOR DIAGNOSIS OF UTI. TRANSFER VIA GURNEY FROM ER IN STABLE CONDITION. A/O X 4. NO SIGNS OF ACUTE DISTRESS. NO COMPLAIN OF PAIN OR DISCOMFORT. AMBULATORY. CONTINENT OF BOWEL AND BLADDER. USING BEDSIDE COMMODE. SKIN CONDITION INTACT, NOTED WITH LEFT CHEEK UNDER THE EYE SCAB. NOTED WITH BILATERAL LOWER EXTREMITIES NON PITTING EDEMA. PAGED DR HAAS FOR ADMISSION ORDERS. AWAITING FOR CALL BACK. CALL LIGHT WITHIN REACH. WILL CONTINUE TO MONITOR TO ENSURE SAFETY.
[2018-03-25 13:39] VITALS: BP 130/68
--- NOTE | 2018-03-25 15:14 | NUR ---
TELE/RN PAGED DR HAAS FOR SECOND TIME. SPOKE WITH ILENE FROM [employer] AND LEFT MESSAGE. AWAITING FOR CALL BACK WILL FOLLOW UP
[2018-03-25 16:00] VITALS: BP 140/79
--- NOTE | 2018-03-25 17:20 | NUR ---
TELE/RN RECEIVED CALL BACK FROM DR HAAS AND GOT NEW ORDERS TO START CARDIAC DIET, AZITHROMYCIN 500MG IVPB Q24HRS, ROCEPHIN 1G IVPB Q 24HRS, PREDNISONE 20MG PO QD, ALBUTEROL 1.25MG NEB Q 4HRS PRN, BNP, BMP, CBC IN AM, CONTINUE ALL HOME MEDS EXCEPT, ALL INHALERS, NITROFURONTION. ORDERS NOTED AND CARRIED OUT. MED RECON FAXED TO PHARM. VERIFY FAX WITH TIAN FROM PHARM.
[2018-03-25] MEDS ORDERED: ALBUTEROL HALF STRENGTH 1.25 MG/3 ML VIAL.NEB NEB PRN (17:30)
--- NOTE | 2018-03-25 18:22 | NUR ---
TELE/RN CLOSING NOTE PATIENT IN BED IN STABLE CONDITION. A/O X 3. NO SIGNS OF ACUTE DISTRESS. NO COMPLAIN OF PAIN OR DISCOMFORT. ON TELE MONITOR WITH SINUS RHYTHM IN 90'S. ALL NEEDS ATTENDED TO. CALL LIGHT WITHIN REACH. WILL ENDORSE TO NEXT SHIFT FOR CONTINUITY OF CARE.
[2018-03-25] MEDS: ACETAMINOPHEN 325 MG TABLET PO PRN (18:47)
--- NOTE | 2018-03-25 19:30 | NUR ---
RECEIVED PT IN BED SLEEPING . AROUSE EASILY BREATHING EVENLY. NO SOB. NAD . SKIN WARM AND DRY. BED LOW LOCKED. CALL LIGHT WITHIN REACH,. WILL CONT TO MONITOR ,
[2018-03-25 20:00] VITALS: BP 133/85
[2018-03-25] MEDS ORDERED: AZITHROMYCIN 500 MG in IV D5W 250 ML IV SCH (20:00)
[2018-03-25] MEDS: TRAMADOL HCL 50 MG TABLET PO PRN (20:40)
--- NOTE | 2018-03-25 20:40 | NUR ---
TRAMADOL GIVEN FOR C/O BLE PAIN. WILL CONT TO MONITOR ,
[2018-03-25] MEDS ORDERED: VOLTAREN TP SCH (21:00)
[2018-03-25] MEDS ORDERED: CEFTRIAXONE 1 G in IV D5W 50 ML IV SCH (21:00)
[2018-03-25] MEDS: ATORVASTATIN 10 MG TABLET PO SCH (21:44)
[2018-03-25] MEDS: TRAZODONE 50 MG TABLET PO SCH (21:44)
[2018-03-25] MEDS: PANTOPRAZOLE 40 MG TABLET.DR PO SCH (21:45)
[2018-03-25] MEDS ORDERED: PRAMIPEXOLE DI-HCL 0.25 MG TABLET ONE (21:49)
[2018-03-25] MEDS: PRAMIPEXOLE DI-HCL 0.25 MG TABLET PO SCH (21:55)
[2018-03-25 22:00] VITALS: BP 133/85
[2018-03-26] VITALS: BP 142/81
[2018-03-26 00:26] VITALS: BP 142/81
[2018-03-26 04:00] VITALS: BP 134/75
[2018-03-26 06:03] LABS: BASOPHILS % (AUTO) 0.2 % (0.0-2.0); HEMATOCRIT 43 % (33-45); HEMOGLOBIN 14.1 g/dL (11.5-14.8); LYMPHOCYTES # (AUTO) 0.7 /CMM (0.8-4.8); LYMPHOCYTES % (AUTO) 7.5 % (20.0-44.0); MEAN CORPUSCULAR HGB CONC 33 g/dl (31.0-36.0); MEAN CORPUSCULAR VOLUME 88 fL (82-100); MONOCYTES # (AUTO) 0.4 /CMM (0.1-1.30); MONOCYTES % (AUTO) 4.8 % (2.0-12.0); NEUTROPHILS # (AUTO) 8.3 /CMM (1.8-8.9); NEUTROPHILS % (AUTO) 87.5 % (43.0-81.0); PLATELET COUNT (AUTO) 197 /CMM (150-450); RED BLOOD CELL COUNT(AUTO) 4.86 MIL/uL (4.0-5.2); WHITE BLOOD COUNT (AUTO) 9.4 K/uL (4.3-11.0)
[2018-03-26 06:20] LABS: B-TYPE NATRIURETIC PEPTIDE 1416 PG/ML (0-125); CALCIUM, SERUM 9.2 mg/dL (8.5-10.1); CARBON DIOXIDE 26 mmol/L (21-32); CHLORIDE 107 mmol/L (98-107); CREATININE 0.9 mg/dL (0.6-1.3); GLUCOSE 141 mg/dL (74-106); POTASSIUM 4.1 mmol/L (3.5-5.1); SODIUM SERUM 144 mmol/L (136-145); UREA NITROGEN, BLOOD 15 mg/dL (7-18)
--- NOTE | 2018-03-26 07:00 | NUR ---
PT IN BED SLEEPING. AROUSES EASILY. BREATHING EVENLY. NO SOB. NO ACUTE EVENT DURING THE NIGHT. NO C/O PAIN OR DISCOMFORT. DENIED DYSURIA. VOIDING FREELY TO CLEAR YELLOW URINE. NO A/R TO ATBS NOTED. NEEDS ATTENDED. BED LO LOCKED. CALL LIGHT WITHIN REACH, WILL CONT TO MONITOR AND WILL ENDORSE TO AM SHIOFT FOR JUNI
[2018-03-26] MEDS: ACETAMINOPHEN 325 MG TABLET PO PRN ×2 (07:29→16:00)
--- NOTE | 2018-03-26 07:30 | NUR ---
tylenol given as ordered for c/o h/a. will cont to monitor,
--- NOTE | 2018-03-26 07:45 | NUR ---
PT. REMOVED TELE AND STATES SHE WANTS TO GO HOME.
[2018-03-26 08:00] VITALS: BP 164/78
[2018-03-26] MEDS: FERROUS SULFATE (325 MG) 325 MG/TAB TABLET PO SCH (10:23)
[2018-03-26] MEDS: predniSONE 20 MG TABLET PO SCH (10:23)
[2018-03-26] MEDS: PANTOPRAZOLE 40 MG TABLET.DR PO SCH ×2 (10:24→22:02)
[2018-03-26] MEDS: ASPIRIN EC 81 MG TABLET.DR PO SCH (10:24)
[2018-03-26] MEDS: METOPROLOL SUCCINATE 50 MG TAB.SR.24H PO SCH (10:24)
[2018-03-26] MEDS: POTASSIUM CHLORIDE 20 MEQ TAB.PRT.SR PO SCH (10:26)
--- NOTE | 2018-03-26 12:30 | NUR ---
IV LEAKING AND INADVERTENTLY PULLED OUT BY PT. RESTARTED LT INDEX FINGER.
[2018-03-26] MEDS ORDERED: LEVOFLOXACIN 750 MG /D5W 150ML 750 MG in PREMIX 1 EA IV SCH ×2 (13:00→14:00)
[2018-03-26] MEDS: TRAMADOL HCL 50 MG TABLET PO PRN ×2 (14:10→21:00)
[2018-03-26 16:00] VITALS: BP 132/66
--- NOTE | 2018-03-26 16:00 | NUR ---
MED X 2 FOR HEADACHE WITH TYLENOL AND X1 WITH ULTRAM.
--- NOTE | 2018-03-26 18:00 | NUR ---
DR. GIBBS IN TO SEE PT.
--- NOTE | 2018-03-26 19:15 | NUR ---
MS/RN OPENING NOTES PT RECEIVED TALKING ON THE PHONE. A/OX4. ON ROOM AIR, BREATHING EVEN AND UNLABORED. NO S/S OF SOB OR PAIN NOTED AT THIS TIME. IV TO LEFT INDEX FINGER PATENT AND INTACT. BED IN LOW/LOCKED POSITION WITH CALL LIGHT IN REACH AND BILATERAL UPPER SIDE RAILS IN PLACE. WILL CONTINUE TO MONITOR
[2018-03-26 20:00] VITALS: BP 142/69
[2018-03-26] MEDS ORDERED: PRAMIPEXOLE DI-HCL 0.25 MG TABLET PO SCH (22:00)
[2018-03-26] MEDS: TRAZODONE 50 MG TABLET PO SCH (22:08)
[2018-03-26] MEDS: ATORVASTATIN 10 MG TABLET PO SCH (22:08)
[2018-03-26] MEDS: PRAMIPEXOLE DI-HCL 0.25 MG TABLET PO SCH (22:09)
[2018-03-27] MEDS: ACETAMINOPHEN 325 MG TABLET PO PRN (02:47)
--- NOTE | 2018-03-27 03:11 | NUR ---
MS/RN NOTES PT C/O HEADACHE. ADMINISTERED PRN TYLENOL ORDERED
--- NOTE | 2018-03-27 06:41 | NUR ---
MS/RN CLOSING NOTES PT WITH EYES CLOSED. OPENS SPONTANEOUSLY. REMAINS ON ROOM AIR, BREATHING EVEN AND UNLABORED. IN NO ACUTE DISTRESS. DENIES SOB/PAIN AT THIS TIME. IV TO LEFT INDEX FINGER PATENT AND INTACT. NO SIGNIFICANT CHANGES OVERNIGHT. ALL NEEDS MET. BED REMAINS IN LOW/LOCKED POSITION WITH CALL LIGHT IN REACH. BILATERAL UPPER SIDE RAILS IN PLACE. WILL ENDORSE TO DAY SHIFT RN JUNI.
--- NOTE | 2018-03-27 07:20 | NUR ---
MS RN OPENING NOTE RECEIVED PT IN BED, SLEEPING AND EASILY AROUSABLE. NO ACUTE DISTRESS NOTED AT THIS TIME. BREATHING IS EVEN AND UNLABORED ON ROOM AIR. L INDEX FINGER @22G IV IS SALINE LOCKED WITHOUT REDNESS OR SWELLING. ALL NEEDS ATTENDED TO, BED IS LOCKED AND IN LOWEST POSITION, SIDE RAILS UP X2, BED ALARM ON, CALL LIGHT WITHIN REACH.
[2018-03-27 08:00] VITALS: BP_SYST 113; BP_SYST 155; BP_DIAS 59; BP_DIAS 82; BP_DIAS 85
[2018-03-27] MEDS: PANTOPRAZOLE 40 MG TABLET.DR PO SCH (08:44)
[2018-03-27] MEDS: FERROUS SULFATE (325 MG) 325 MG/TAB TABLET PO SCH (08:44)
[2018-03-27] MEDS: ASPIRIN EC 81 MG TABLET.DR PO SCH (08:44)
[2018-03-27] MEDS: predniSONE 20 MG TABLET PO SCH (08:46)
[2018-03-27 08:47] VITALS: BP 155/85
[2018-03-27] MEDS: METOPROLOL SUCCINATE 50 MG TAB.SR.24H PO SCH (08:47)
[2018-03-27] MEDS: POTASSIUM CHLORIDE 20 MEQ TAB.PRT.SR PO SCH (08:47)
[2018-03-27] MEDS: TRAMADOL HCL 50 MG TABLET PO PRN (08:48)
--- NOTE | 2018-03-27 09:00 | NUR ---
MS RN NOTE PT STATED THAT SHE HAS A VENTOLIN INHALER THAT SHE USES AT HOME AND IS REQUESTING TO HAVE ONE PLACED AT THE BEDSIDE THAT SHE CAN USE NEEDED FOR WHEEZING AND SOB. INFORMED THE PT THAT SHE HAS VENTOLIN BREATHING TREATMENT ORDERED PRN THAT CAN BE ADMINISTERED BY THE RESPIRATORY THERAPIST IF NEEDED. PT STATED THAT SHE DID NOT WANT THE BREATHING TREATMENT BECAUSE "IT GIVES ME A HEADACHE" AND WOULD PREFER TO HAVE AN INHALER INSTEAD. INFORMED THE PT THAT THE NURSE WILL SPEAK TO THE DOCTOR REGARDING REQUEST, ENCOURAGED PT TO ALLOW RESPIRATORY THERAPIST TO PROVIDE BREATHING TREATMENT IN THE MEANTIME. PT STILL DECLINED. VS WNL, INCLUDING SP02 WHICH IS 95% ON ROOM AIR. PREDNISONE 20MG ADMINISTERED WITH AM MEDS WELL. WILL CONTINUE TO MONITOR.
--- NOTE | 2018-03-27 17:45 | NUR ---
MS RN PT DISCHARGED PT DISCHARGED TO [facility] LIVING IN MEDICALLY STABLE CONDITION. REPORT GIVEN TO JOSHUA FOR CONTINUITY OF CARE. DISCHARGE PAPERWORK AND EDUCATION PROVIDED PER PROTOCOL. PT REFUSED WOUND DOCUMENTATION. EXPLAINED RISKS AND BENEFITS OF MONITORING SKIN OUTCOMES, PT STILL REFUSED. L INDEX FINGER @22 IV REMOVED WITH CATHETER TIP INTACT. ALL BELONGINGS ACCOUNTED FOR AND BELONGINGS LISTED SIGNED AND PLACED IN CHART. PRESCRIPTION PROVIDED IN D/C PAPERWORK AND PROVIDED TO AMBULANCE STAFF. REPORT GIVEN TO AMBULANCE STAFF FOR TRANSFER OF CARE.
[2018-04-24] MEDS ORDERED: ERGOCALCIFEROL (VITAMIN D 2) 50,000 UNIT CAPSULE PO SCH (09:00)
== END 2018-03-27 18:00 | DRG 690 ==
LOC: ER 09:47 → TELE 11:33 → MED 03-26 09:06
PROVIDERS: ADMIT Internal Medicine; ATTEND Internal Medicine
DX: N39.0 Urinary tract infection, site not specified (principal); I10 Essential (primary) hypertension; K21.9 Gastro-esophageal reflux disease without esophagitis; F32.9 Major depressive disorder, single episode, unspecified; J44.9 Chronic obstructive pulmonary disease, unspecified; Z79.899 Other long term (current) drug therapy; Z79.51 Long term (current) use of inhaled steroids
CPT/HCPCS: 36415; 71045-TC; 80048-TC; 80076-TC; 81000-TC; 83690-TC; 83880; 84484-TC; 85025-TC; 87081-TC; 87086-TC; 87186-TC; A4216; A4606; G0378; J0456; J0692; J0696; J1956; J2930; J7030; J7050; J7060; Z7610

== ENCOUNTER 2018-08-12 12:40 | Inpatient (IN) | payer MEDICAID, MEDICARE ==
[~2018-08-12] VITALS: Ht 144.8 cm; Wt 99.8 kg
[~2018-08-12 12:40] MED LIST changes: -ALBU18HF2 IH; -AMLO10TA6 PO; +ASPI-1152 PO; +ATOR10TA PO; +DICL100G16 TP; +ERGO500014 PO; +FERR325T6 PO; -FLUT12AE5 IH; +METO-357 PO; +POTA20TA83 PO; -PRAM0.253 PO; +PRAM1TAB3 PO; -SIMV40TA5 PO
--- NOTE | 2018-08-12 12:55 | NUR ---
patient presented to the ER [facility], sent by Dr. Peck due to PNA. On room air, breathing evenly and unlabored. Connected to the monitor and pulse ox. Denies any pain at this time. Kept comfortable, will continue to monitor accordingly.
[2018-08-12] MEDS ORDERED: VANCOMYCIN 1 GM in IV D5W 250 ML IV ONE (13:00)
[2018-08-12] MEDS ORDERED: CEFEPIME 1 GM in IV D5W 50 ML IV ONE (13:00)
[2018-08-12 13:10] LABS: BASOPHILS % (AUTO) 0.7 % (0.0-2.0); EOSINOPHILS % (AUTO) 1.4 % (0.0-6.0); HEMATOCRIT 45 % (33-45); HEMOGLOBIN 14.7 g/dL (11.5-14.8); LYMPHOCYTES # (AUTO) 0.9 /CMM (0.8-4.8); LYMPHOCYTES % (AUTO) 14.5 % (20.0-44.0); MEAN CORPUSCULAR HGB CONC 33 g/dl (31.0-36.0); MEAN CORPUSCULAR VOLUME 90 fL (82-100); MONOCYTES # (AUTO) 0.5 /CMM (0.1-1.30); MONOCYTES % (AUTO) 7.2 % (2.0-12.0); NEUTROPHILS # (AUTO) 4.9 /CMM (1.8-8.9); NEUTROPHILS % (AUTO) 76.2 % (43.0-81.0); PLATELET COUNT (AUTO) 206 /CMM (150-450); RED BLOOD CELL COUNT(AUTO) 4.97 MIL/uL (4.0-5.2); WHITE BLOOD COUNT (AUTO) 6.5 K/uL (4.3-11.0)
[2018-08-12 13:21] LABS: CALCIUM, SERUM 9.1 mg/dL (8.5-10.1); CARBON DIOXIDE 31 mmol/L (21-32); CHLORIDE 103 mmol/L (98-107); CREATININE 1.1 mg/dL (0.6-1.3); GLUCOSE 108 mg/dL (74-106); POTASSIUM 4.9 mmol/L (3.5-5.1); SODIUM SERUM 140 mmol/L (136-145); UREA NITROGEN, BLOOD 21 mg/dL (7-18)
[2018-08-12 13:27] LABS: ALANINE AMINOTRANSFERASE 16 U/L (12-78); ALBUMIN 3.5 g/dL (3.4-5.0); ALKALINE PHOSPHATASE 152 U/L (46-116); ASPARTATE AMINOTRANSFERASE 16 U/L (15-37); BILIRUBIN,DIRECT 0.1 mg/dL (0.0-0.2); BILIRUBIN,TOTAL 0.5 mg/dL (0.2-1.0); TOTAL PROTEIN, SERUM 7.7 g/dL (6.4-8.2)
--- NOTE | 2018-08-12 13:30 | NUR ---
urine collected and sent to lab
[2018-08-12 13:46] LABS: APPEARANCE,URINE Clear (CLEAR); BILIRUBIN,URINE Negative (NEGATIVE); BLOOD, URINE Negative Ery/uL (NEGATIVE); COLOR,URINE Yellow (YELLOW); KETONES,URINE Negative (NEGATIVE); LEUKOCYTE ESTERASE ,URINE Small (NEGATIVE); NITRITE, URINE Negative (NEGATIVE); PH,URINE 8.5 (5.0-8.0); PROTEIN,URINE Trace mg/dl (NEGATIVE); UGLUCOSE Negative (NEGATIVE)
[2018-08-12 13:48] LABS: BACTERIA,URINE Few /HPF (None Seen); RBC,URINE 0-2 /HPF (0-2); SQUAMOUS EPITHELIAL CELL,UR Few /HPF (None Seen)
[2018-08-12] MEDS ORDERED: IPRATROPIUM NEB FS 0.5 MG/2.5 ML AMPUL.NEB NEB ONE (14:00)
[2018-08-12] MEDS ORDERED: ALBUTEROL FS 2.5 MG/3 ML VIAL.NEB NEB ONE (14:00)
[2018-08-12] MEDS ORDERED: IPRATROPIUM NEB FS 0.5 MG/2.5 ML AMPUL.NEB ONE (14:16)
[2018-08-12] MEDS ORDERED: ALBUTEROL FS 2.5 MG/3 ML VIAL.NEB ONE (14:16)
--- NOTE | 2018-08-12 14:17 | NUR ---
ADMIT 113-2 DX PNEUMONIA VICENTE OROZCO
--- NOTE | 2018-08-12 14:33 | NUR ---
called [facility] and spoke to Mar CASTAÑEDA and report given for lavell.
--- NOTE | 2018-08-12 14:48 | NUR ---
wheeled patient via gurney accompanied by emt in no apparent distress noted.
--- NOTE | 2018-08-12 14:50 | NUR ---
TELE/RN RECEIVED REPORT FROM YASMANY CASTAÑEDA FROM EMERGENCY DEPARTMENT. PATIENT WILL BE ADMITTED TO TELEMETRY UNIT BED 113 -2.
--- NOTE | 2018-08-12 15:00 | NUR ---
MS/RN PATIENT CAME TO THE UNIT VIA GORNEY. NO S/S OF ACUTE DISTRESS NOTED UPON ARRIVAL. RESPIRATION EVEN AND UNLABORED. PATIENT PLACED IN THE BED. PATIENT DENIES ANY PAIN OR DISCOMFORT AT THIS TIME. SAFETY MEASURES INITIATED. CALL LIGHT WITH IN EASY REACH. CALLED DR HAAS AND NOTIFIED REGARDING ADMISSION AND VERIFIED ORDERS. WILL CONTINUE TO MONITOR
[2018-08-12 16:00] VITALS: BP 138/70
[2018-08-12 18:10] VITALS: BP 138/70
[2018-08-12 18:18] VITALS: BP 138/70
--- NOTE | 2018-08-12 18:39 | NUR ---
MS RN END OF SHIFT NOTES PT RESTING IN BED, ATE DINNER, BEDSIDE COMMODE AT BEDSIDE. NO RESP DISTRESS NOTED AT THIS TIME. O2 SAT WNL ON ROOM AIR. BED IN LOCKED/LOWEST POSITION. CALL LIGHT IN REACH. WILL ENDORSE TO PM NURSE FOR JUNI.
[2018-08-12] MEDS: ALBUTEROL HALF STRENGTH 1.25 MG/3 ML VIAL.NEB NEB SCH ×2 (19:12→22:35)
[2018-08-12 20:00] VITALS: BP 123/46
--- NOTE | 2018-08-12 20:00 | NUR ---
MS RN NOTE PT IN BED A/O X 4, NO SOB, NO DISTRESS OR DISCOMFORT NOTED. NO S/S OF PAIN NOTED. ALL NEEDS ATTENDED. SIDE RAILS UP X 2 AND CALL LIGHT WITHIN REACH. WILL CONTINUE TO MONITOR HER.
[2018-08-12] MEDS: DOXYCYCLINE HYCLATE (100 MG) 100 MG TABLET PO SCH (21:47)
[2018-08-12] MEDS: PRAMIPEXOLE DI-HCL 0.25 MG TABLET PO SCH (21:47)
[2018-08-12] MEDS: TRAZODONE 50 MG TABLET PO SCH (21:48)
[2018-08-12] MEDS: ATORVASTATIN 10 MG TABLET PO SCH (21:48)
[2018-08-12] MEDS: ENOXAPARIN SODIUM 30 MG/0.3 ML DISP.SYRIN SQ SCH (21:49)
[2018-08-12] MEDS: TRAMADOL HCL 50 MG TABLET PO PRN (21:59)
--- NOTE | 2018-08-12 22:37 | NUR ---
RT NOTE PT REFUSED TX WANTS TO SLEEP FOR THE REST OF THE NIGHT. NO DISTRESS NOTED AT THIS TIME. O2 IS ON 2L NC.
[2018-08-13] MEDS: ALBUTEROL HALF STRENGTH 1.25 MG/3 ML VIAL.NEB NEB SCH ×6 (02:30→22:32)
[2018-08-13 04:00] VITALS: BP 124/46
--- NOTE | 2018-08-13 06:25 | NUR ---
MS RN NOTE PT IN BED ASLEEP, AROUSABLE. NO DISTRESS OR DISCOMFORT NOTED. DENIES PAIN AT THIS TIME. ALL NEEDS ATTENDED. VSS. SIDE RAILS UP X 2 AND CALL LIGHT WITHIN REACH. WILL ENDORSE TO DAY SHIFT NURSE FOR CONTINUE TO CARE.
[2018-08-13 07:28] LABS: BASOPHILS % (AUTO) 0.6 % (0.0-2.0); EOSINOPHILS % (AUTO) 3.2 % (0.0-6.0); HEMATOCRIT 42 % (33-45); HEMOGLOBIN 14.1 g/dL (11.5-14.8); LYMPHOCYTES # (AUTO) 1.3 /CMM (0.8-4.8); MEAN CORPUSCULAR HGB CONC 33 g/dl (31.0-36.0); MEAN CORPUSCULAR VOLUME 89 fL (82-100); MONOCYTES # (AUTO) 0.5 /CMM (0.1-1.30); MONOCYTES % (AUTO) 8.6 % (2.0-12.0); NEUTROPHILS # (AUTO) 3.7 /CMM (1.8-8.9); NEUTROPHILS % (AUTO) 65.6 % (43.0-81.0); PLATELET COUNT (AUTO) 163 /CMM (150-450); RED BLOOD CELL COUNT(AUTO) 4.76 MIL/uL (4.0-5.2); WHITE BLOOD COUNT (AUTO) 5.7 K/uL (4.3-11.0)
[2018-08-13 07:46] VITALS: BP 131/65
[2018-08-13 07:51] LABS: CALCIUM, SERUM 9.1 mg/dL (8.5-10.1); CARBON DIOXIDE 28 mmol/L (21-32); CHLORIDE 106 mmol/L (98-107); GLUCOSE 89 mg/dL (74-106); POTASSIUM 4.2 mmol/L (3.5-5.1); SODIUM SERUM 142 mmol/L (136-145); UREA NITROGEN, BLOOD 19 mg/dL (7-18)
[2018-08-13 08:00] VITALS: BP 131/65
[2018-08-13] MEDS ORDERED: ERGOCALCIFEROL (VITAMIN D 2) 50,000 UNIT CAPSULE PO SCH (09:00)
[2018-08-13] MEDS ORDERED: ASPIRIN EC 81 MG TABLET.DR PO SCH (09:00)
[2018-08-13] MEDS ORDERED: POTASSIUM CHLORIDE 20 MEQ TAB.PRT.SR PO SCH (09:00)
--- NOTE | 2018-08-13 09:30 | NUR ---
CASHIER AND SALESPERSON NOTES RECEIVED FROM MADDY BONILLA. PATIENT IN STABLE CONDITION. A/OX3. NOT IN ANY FORM OF DISTRESS. NO SOB NOTED. DENIED PAIN OR DISCOMFORT AT THIS TIME. IV ACCESS INTACT AND PATENT. KEPT PATIENT SAFE AND COMFORTABLE. BED IN LOW, LOCKED POSIITON, SIDERAILS UPX2, CALL LIGHT IN REACH. WILL CONTNIUE TOP MONITOR ACCORIDNGLY.
[2018-08-13] MEDS: CEFTRIAXONE 1 G in IV D5W 50 ML IV SCH (09:36)
[2018-08-13] MEDS: FERROUS SULFATE (325 MG) 325 MG/TAB TABLET PO SCH (09:36)
[2018-08-13] MEDS: DOXYCYCLINE HYCLATE (100 MG) 100 MG TABLET PO SCH ×2 (09:36→20:59)
[2018-08-13] MEDS: METOPROLOL SUCCINATE 50 MG TAB.SR.24H PO SCH (09:37)
[2018-08-13] MEDS: PANTOPRAZOLE 40 MG TABLET.DR PO SCH ×2 (09:37→16:54)
[2018-08-13 16:00] VITALS: BP 128/70
[2018-08-13] MEDS: LACTOBACILLUS RHAMNOSUS GG 1 EACH CAP.SPRINK PO SCH (16:53)
[2018-08-13] MEDS: TRAMADOL HCL 50 MG TABLET PO PRN (17:01)
--- NOTE | 2018-08-13 19:30 | NUR ---
RN NOTES received pt. awake on bed, a/ox3, denies pain at this time, no sob, call light within reach, siderailsupx2, continue to monitor
--- NOTE | 2018-08-13 19:37 | NUR ---
RN CLOSING NOTES PATIENT IN STABLE CONDITION. NO SIGNIFICANT CHANGE DURING SHIFT. ALL NEEDS ATTENDED AND PROVIDED. ALL DUE MEDS GIVEN ORDERED. BED IN LOW LOCKED POSITION, SIDERAILS UPX2, CALL LIGHT IN REACH. ENDORSED TO NIGHT RN FOR JUNI
--- NOTE | 2018-08-13 19:51 | NUR ---
RN NOTES COMPLAINED OF TERRIBLE HEADACHE AND ASKED FOR TYLENOL, GOT AN ORDER FROM LOBO OLIVAREZ.. TYLENOL 650MG PO Q 4HRS PRN, ORDER NOTED AND CARRIED OUT
[2018-08-13 20:00] VITALS: BP 114/71
[2018-08-13] MEDS: ACETAMINOPHEN 325 MG TABLET PO PRN (20:09)
--- NOTE | 2018-08-13 20:11 | NUR ---
RN NOTES COMPLAINED OF GHEADACHE-TYLENOL 650MG PO GIVEN ORDERED, V/S STABLE
[2018-08-13 20:19] VITALS: BP 114/71
[2018-08-13] MEDS: ENOXAPARIN SODIUM 30 MG/0.3 ML DISP.SYRIN SQ SCH (21:00)
[2018-08-13] MEDS: PRAMIPEXOLE DI-HCL 0.25 MG TABLET PO SCH (21:54)
[2018-08-13] MEDS: ATORVASTATIN 10 MG TABLET PO SCH (21:54)
[2018-08-13] MEDS: TRAZODONE 50 MG TABLET PO SCH (21:54)
[2018-08-14] MEDS: TRAMADOL HCL 50 MG TABLET PO PRN ×4 (02:41→21:47)
--- NOTE | 2018-08-14 02:45 | NUR ---
RN NOTES COMPLAINED OF GENERALIZED PAIN AND ASKED FOR ULTRAM- ULTRAM 50MG PO GIVEN ORDERED, V/S STABLE
[2018-08-14] MEDS: ALBUTEROL HALF STRENGTH 1.25 MG/3 ML VIAL.NEB NEB SCH ×6 (02:58→22:38)
[2018-08-14 03:57] VITALS: BP 120/70
[2018-08-14 04:00] VITALS: BP 120/70
--- NOTE | 2018-08-14 06:18 | NUR ---
RN NOTES AWAKE, MORNING CARE RENDERED, DENIES PAIN, NO SOB, CALL LIGHT WITHIN REACH, SIDERAILSUPX2, PT. NEEDS ATTENDED
--- NOTE | 2018-08-14 07:25 | NUR ---
RN MS OPENING NOTES RECEIVED REPORT FROM INSURANCE TERRITORY MANAGER RN. PT IS RESTING IN BED. BED IS LOCKED AND IN LOWEST POSITION WITH CALL LIGHT IN REACH. PT DENIES ANY PAIN OR SOB AT PRESENT MOMENT. WILL CONTINUE TO MONITOR.
[2018-08-14 08:00] VITALS: BP 125/93
[2018-08-14] MEDS: ASPIRIN EC 81 MG TABLET.DR PO SCH (08:14)
[2018-08-14] MEDS: LACTOBACILLUS RHAMNOSUS GG 1 EACH CAP.SPRINK PO SCH ×2 (08:15→16:20)
[2018-08-14] MEDS: DOXYCYCLINE HYCLATE (100 MG) 100 MG TABLET PO SCH ×2 (08:15→20:51)
[2018-08-14] MEDS: FERROUS SULFATE (325 MG) 325 MG/TAB TABLET PO SCH (08:15)
[2018-08-14] MEDS: PANTOPRAZOLE 40 MG TABLET.DR PO SCH ×2 (08:15→16:20)
[2018-08-14] MEDS: ACETAMINOPHEN 325 MG TABLET PO PRN (08:16)
[2018-08-14] MEDS: CEFTRIAXONE 1 G in IV D5W 50 ML IV SCH (08:16)
[2018-08-14] MEDS: METOPROLOL SUCCINATE 50 MG TAB.SR.24H PO SCH (08:16)
[2018-08-14 16:00] VITALS: BP 114/61
--- NOTE | 2018-08-14 18:45 | NUR ---
RN MS CLOSING NOTES PT IS RESTING IN BED WATCHING TV. PT DENIES ANY PAIN OR SOB AT PRESENT MOMENT. PT HAS AN IV L AC 20 GAUGE SL. BED IS LOCKED AND IN LOWEST POSITION WITH CALL LIGHT IN REACH. WILL ENDORSE CONTINUITY OF CARE TO LEAFLET OR NEWSPAPER DELIVERER NURSE.
--- NOTE | 2018-08-14 19:10 | NUR ---
MS RN OPENING NOTES Received patient sitting up in bed, watching TV, alert, oriented x 3. Breathing even and unlabored, on 2L O2 via nasal cannula, tolerating well. No complaints of pain or discomfort at this time. Call light within reach. Bed in low, locked position. Will continue to monitor accordingly
[2018-08-14 20:00] VITALS: BP 117/58
[2018-08-14] MEDS: ENOXAPARIN SODIUM 30 MG/0.3 ML DISP.SYRIN SQ SCH (20:53)
[2018-08-14] MEDS: ATORVASTATIN 10 MG TABLET PO SCH (21:16)
[2018-08-14] MEDS: PRAMIPEXOLE DI-HCL 0.25 MG TABLET PO SCH (21:17)
[2018-08-14] MEDS: TRAZODONE 50 MG TABLET PO SCH (21:17)
--- NOTE | 2018-08-14 21:48 | NUR ---
RN NOTES Patient c/o generalized pain and requested for ultram. Ultram 50mg PO given as ordered.
[2018-08-15] MEDS: ALBUTEROL HALF STRENGTH 1.25 MG/3 ML VIAL.NEB NEB SCH ×3 (02:35→11:17)
[2018-08-15 04:00] VITALS: BP 133/59
--- NOTE | 2018-08-15 06:29 | NUR ---
MS RN CLOSING NOTES Patient resting in bed. No acute change throughout the shift. On O2 @ 2LPM via NC. All needs attended and met. Safety measures in place. Will endorse continuity of care to oncoming RN.
--- NOTE | 2018-08-15 07:20 | NUR ---
RN OPENING NOTES RECEIVED BEDSIDE REPORT, PATIENT ASLEEP BUT EASILY AROUSABLE. AMBULATORY WITH ASSIST PER NOC SHIFT. HAS ABD FOLD REDNESS. HAS A LEFT AC #20 SALINE LOCKED. AM LABS STILL PENDING. POSSIBLE DC TODAY. BED LOCKED AND IN LOWEST POSITION. CALL LIGHT WITHIN REACH. WILL CONT TO MONITOR.
[2018-08-15 08:00] VITALS: BP 134/58
[2018-08-15] MEDS: CEFTRIAXONE 1 G in IV D5W 50 ML IV SCH (08:31)
[2018-08-15] MEDS: FERROUS SULFATE (325 MG) 325 MG/TAB TABLET PO SCH (08:34)
[2018-08-15] MEDS: DOXYCYCLINE HYCLATE (100 MG) 100 MG TABLET PO SCH (08:34)
[2018-08-15] MEDS: LACTOBACILLUS RHAMNOSUS GG 1 EACH CAP.SPRINK PO SCH (08:34)
[2018-08-15] MEDS: PANTOPRAZOLE 40 MG TABLET.DR PO SCH (08:34)
[2018-08-15 08:35] VITALS: BP 134/58
[2018-08-15] MEDS: METOPROLOL SUCCINATE 50 MG TAB.SR.24H PO SCH (08:35)
[2018-08-15] MEDS: ASPIRIN EC 81 MG TABLET.DR PO SCH (08:37)
[2018-08-15] MEDS: TRAMADOL HCL 50 MG TABLET PO PRN (09:12)
== END 2018-08-15 13:40 | DRG 202 ==
LOC: ER 12:41 → TELE1 14:21 → MEDSG1 14:49 → TELE1 16:22 → MEDSG1 17:31
PROVIDERS: ADMIT Internal Medicine; ATTEND Internal Medicine
DX: J20.9 Acute bronchitis, unspecified (principal); J15.9 Unspecified bacterial pneumonia; I50.22 Chronic systolic (congestive) heart failure; N39.0 Urinary tract infection, site not specified; Z68.42 Body mass index [BMI] 45.0-49.9, adult; K21.9 Gastro-esophageal reflux disease without esophagitis; I25.10 Atherosclerotic heart disease of native coronary artery without angina pectoris; I11.0 Hypertensive heart disease with heart failure; Z95.5 Presence of coronary angioplasty implant and graft; Z87.11 Personal history of peptic ulcer disease; G25.81 Restless legs syndrome; E55.9 Vitamin D deficiency, unspecified; J42 Unspecified chronic bronchitis; Z87.440 Personal history of urinary (tract) infections; D50.9 Iron deficiency anemia, unspecified; E66.9 Obesity, unspecified
CPT/HCPCS: 36415; 71045-TC; 80048-TC; 80076-TC; 81000-TC; 83605-TC; 84484-TC; 85025-TC; 85730-TC; 87040-TC; 87081-TC; 87086-TC; 94799-TC; 97116-TC; 97530-TC; G0378; J0692; J0696; J1650; J3370; J3490; J7030; J7050; J7060

== ENCOUNTER 2018-09-24 12:08 | Emergency (ER) | payer MEDICARE ==
[~2018-09-24] VITALS: Ht 165.1 cm; Wt 68.0 kg
--- NOTE | 2018-09-24 12:24 | NUR ---
BIB EMS FOR COUGH, CONGESTION, AND SOB, CAME IN ON O2 VIA NC AT 4LPM. TO ER BED 4, HOOKED TO MONITOR, CHANGED TO GOWN, PROVIDED W WARM BLANKET, AWAITING MD MALDONADO.
--- NOTE | 2018-09-24 12:25 | NUR ---
DR GRAMAJO AT BEDSIDE
[2018-09-24] MEDS ORDERED: IPRATROPIUM NEB FS 0.5 MG/2.5 ML AMPUL.NEB NEB ONE (12:30)
[2018-09-24] MEDS ORDERED: ALBUTEROL FS 2.5 MG/3 ML VIAL.NEB NEB ONE (12:30)
[2018-09-24] MEDS ORDERED: methylPREDNISolone SOD SUCC 125 MG/2ML VIAL IV ONE (12:30)
[2018-09-24] MEDS ORDERED: methylPREDNISolone SOD SUCC 125 MG/2ML VIAL ONE (12:33)
[2018-09-24] MEDS ORDERED: ALBUTEROL FS 2.5 MG/3 ML VIAL.NEB ONE (12:38)
[2018-09-24] MEDS ORDERED: IPRATROPIUM NEB FS 0.5 MG/2.5 ML AMPUL.NEB ONE (12:38)
--- NOTE | 2018-09-24 12:41 | NUR ---
RT AT BEDSIDE, STARTED W BREATHINNG TREATMENT
[2018-09-24 12:50] LABS: BASOPHILS % (AUTO) 0.5 % (0.0-2.0); EOSINOPHILS % (AUTO) 3.7 % (0.0-6.0); HEMATOCRIT 42 % (33-45); HEMOGLOBIN 13.6 g/dL (11.5-14.8); LYMPHOCYTES # (AUTO) 0.9 /CMM (0.8-4.8); LYMPHOCYTES % (AUTO) 12.6 % (20.0-44.0); MEAN CORPUSCULAR HGB CONC 33 g/dl (31.0-36.0); MEAN CORPUSCULAR VOLUME 90 fL (82-100); MONOCYTES # (AUTO) 0.8 /CMM (0.1-1.30); MONOCYTES % (AUTO) 11.4 % (2.0-12.0); NEUTROPHILS % (AUTO) 71.8 % (43.0-81.0); PLATELET COUNT (AUTO) 188 /CMM (150-450)
[2018-09-24 12:59] LABS: CARBON DIOXIDE 28 mmol/L (21-32); CHLORIDE 103 mmol/L (98-107); CREATININE 1.1 mg/dL (0.6-1.3); GLUCOSE 102 mg/dL (74-106); POTASSIUM 4.1 mmol/L (3.5-5.1); SODIUM SERUM 138 mmol/L (136-145); UREA NITROGEN, BLOOD 20 mg/dL (7-18)
[2018-09-24 13:12] LABS: B-TYPE NATRIURETIC PEPTIDE 161 PG/ML (0-125)
--- NOTE | 2018-09-24 14:06 | NUR ---
PT IN BED COMFORTABLE, HOOKED TO MONITOR, ON O2 VIA NC AT 3LPM, KEPT COMFORTABLE AND SAFE, HOB MAINTAINED ELEVATED FOR BETTER LUNG EXPANSION.
--- NOTE | 2018-09-24 16:03 | NUR ---
CALLED FOR S TRANSPORT, ETA OF 45 MIN ([phone]), TRIP # [id number]
--- NOTE | 2018-09-24 17:00 | NUR ---
CONTACTED KOFFI MARIA, NO ANSWER
--- NOTE | 2018-09-24 17:22 | NUR ---
Patient discharged to [facility] UNIT 109 in stable condition. Written and verbal after care instructions given. Patient verbalizes understanding of instruction. PT WILL BE BROUGHT TO [facility] EMERGENCY DEPARTMENT.
[2018-09-24 17:25] VITALS: BP 105/89
--- NOTE | 2018-09-24 17:40 | NUR ---
SPOKE TO [facility], NURSE JIG AND FIXTURE BUILDER APPRENTICE AND CONGRESSIONAL ASSISTANT NOT AVAILABLE. MADE AWARE THAT PT IS COMING BACK.
== END 2018-09-24 17:26 ==
LOC: ER 12:09
DX: J45.901 Unspecified asthma with (acute) exacerbation (principal); R60.0 Localized edema; G20 Parkinson's disease; I11.0 Hypertensive heart disease with heart failure; I50.9 Heart failure, unspecified; I25.10 Atherosclerotic heart disease of native coronary artery without angina pectoris; F10.10 Alcohol abuse, uncomplicated; Y90.9 Presence of alcohol in blood, level not specified; Z79.82 Long term (current) use of aspirin
CPT/HCPCS: 36415; 71045; 80048; 83880; 85025; 87804 ×2; 93005; 94640; 96374; 99285; J2930; 87400

== ENCOUNTER 2019-05-06 12:29 | Inpatient (IN) | payer MEDICARE, OTHER ==
[~2019-05-06] VITALS: Ht 144.8 cm; Wt 93.4 kg
--- NOTE | 2019-05-06 12:39 | NUR ---
MARJ FROM [facility] ASSISTED LIVING WITH C/O COUGH, CONGESTION AND GENERALIZED WEAKNESS X 2 DAYS, TO ER BED 8, HOOKED TO MONITOR, CHANGED TO HOSP GOWN, PROVIDED W WARM BLANKET, PATIENT AO x 3,PER PATIENT, SHE'S ON 2LPM VIA NC IN THE ASSISTED LIVING, SATURATION RA AT 95%, AWAITING MD MALDONADO.
--- NOTE | 2019-05-06 12:44 | NUR ---
DR RUDOLPH AT BEDSIDE
--- NOTE | 2019-05-06 12:55 | NUR ---
COIN MACHINE COLLECTOR SUPERVISOR AT BEDSIDE
[2019-05-06] MEDS ORDERED: IV NS 0.9% 1,000 ML BAG IV ONE (13:00)
--- NOTE | 2019-05-06 13:13 | NUR ---
PRECINCT POLICE SERGEANT AT BEDSIDE
[2019-05-06 13:21] LABS: CALCIUM, SERUM 8.8 mg/dL (8.5-10.1); CARBON DIOXIDE 30 mmol/L (21-32); CHLORIDE 99 mmol/L (98-107); CREATININE 1.8 mg/dL (0.6-1.3); GLUCOSE 111 mg/dL (74-106); POTASSIUM 4.5 mmol/L (3.5-5.1); SODIUM SERUM 135 mmol/L (136-145); UREA NITROGEN, BLOOD 40 mg/dL (7-18)
[2019-05-06 13:26] LABS: ALANINE AMINOTRANSFERASE 53 U/L (12-78); ALBUMIN 3.1 g/dL (3.4-5.0); ALKALINE PHOSPHATASE 139 U/L (46-116); ASPARTATE AMINOTRANSFERASE 59 U/L (15-37); BILIRUBIN,DIRECT 0.2 mg/dL (0.0-0.2); BILIRUBIN,TOTAL 0.4 mg/dL (0.2-1.0); TOTAL PROTEIN, SERUM 6.7 g/dL (6.4-8.2)
[2019-05-06 13:28] LABS: BASOPHILS % (AUTO) 1.1 % (0.0-2.0); EOSINOPHILS % (AUTO) 0.6 % (0.0-6.0); HEMATOCRIT 40 % (33-45); LYMPHOCYTES # (AUTO) 0.7 /CMM (0.8-4.8); LYMPHOCYTES % (AUTO) 15.4 % (20.0-44.0); MEAN CORPUSCULAR HGB CONC 33 g/dl (31.0-36.0); MEAN CORPUSCULAR VOLUME 86 fL (82-100); MONOCYTES % (AUTO) 21.4 % (2.0-12.0); NEUTROPHILS # (AUTO) 2.8 /CMM (1.8-8.9); NEUTROPHILS % (AUTO) 61.5 % (43.0-81.0); PLATELET COUNT (AUTO) 190 /CMM (150-450); RED BLOOD CELL COUNT(AUTO) 4.65 MIL/uL (4.0-5.2); WHITE BLOOD COUNT (AUTO) 4.6 K/uL (4.3-11.0)
[2019-05-06] MEDS ORDERED: MELA3TAB63 PO (13:47)
[2019-05-06] MEDS ORDERED: MAGN400O6 PO (13:47)
[2019-05-06] MEDS ORDERED: UMEC1BLS IH (13:47)
[2019-05-06] MEDS ORDERED: OMEP20CA15 PO (13:47)
[2019-05-06] MEDS ORDERED: CETI5TAB6 PO (13:47)
[2019-05-06] MEDS ORDERED: GUAI100S11 PO (13:47)
[2019-05-06] MEDS ORDERED: FURO-144 PO (13:47)
[2019-05-06] MEDS ORDERED: CHOL100040 PO (13:47)
[2019-05-06] MEDS ORDERED: BENA20TA9 PO (13:47)
[2019-05-06] MEDS ORDERED: POTA-10 PO (13:47)
--- NOTE | 2019-05-06 14:04 | NUR ---
URINE SAMPLE SENT TO LAB
[2019-05-06 14:08] LABS: APPEARANCE,URINE Clear (CLEAR); BILIRUBIN,URINE Negative (NEGATIVE); BLOOD, URINE Small Ery/uL (NEGATIVE); COLOR,URINE Yellow (YELLOW); KETONES,URINE Negative (NEGATIVE); LEUKOCYTE ESTERASE ,URINE Negative (NEGATIVE); NITRITE, URINE Negative (NEGATIVE); PROTEIN,URINE Negative (NEGATIVE); UGLUCOSE Negative (NEGATIVE); UROBILINOGEN,URINE 0.2 EU/dL (0.2)
[2019-05-06 14:10] LABS: BACTERIA,URINE Few /HPF (None Seen); SQUAMOUS EPITHELIAL CELL,UR Few /HPF (None Seen); WBC,URINE 0-2 /HPF (0-3)
[2019-05-06 14:20] LABS: BAND % (MANUAL) 2 % (0.0-5.0); EOSINOPHILS % (MANUAL) 1 % (0-4); LYMPHOCYTES % (MANUAL) 14 % (16-48); MONOCYTES % (MANUAL) 17 % (0-11.0); NEUTROPHILS % (MANUAL) 66 (42-76)
[2019-05-06] MEDS ORDERED: ASPIRIN 81 MG TAB.CHEW PO ONE (14:30)
[2019-05-06] MEDS ORDERED: ASPIRIN 81 MG TAB.CHEW ONE (14:34)
--- NOTE | 2019-05-06 15:02 | NUR ---
richard ortiz [phone] paged
--- NOTE | 2019-05-06 15:26 | NUR ---
CALLED DR. VALENCIA'S OFFICE [phone] HE WILL BE PAGED.
--- NOTE | 2019-05-06 18:20 | NUR ---
GOT BED 312-1
--- NOTE | 2019-05-06 18:32 | NUR ---
REPORT GIVEN TO DAVID CASTAÑEDA
--- NOTE | 2019-05-06 19:30 | NUR ---
PATIENT CAME FROM ER, A/O X4. O2 AT 3L/MIN. NASAL CANNULA. HEAD OF BEAD ELEVATED. COUGHS OCCATIONALLY, NON PRODUCTIVE. V/S TAKEN, AFEBRILE. BED ALARM ON. BED IN LOWEST AND LOCKED POSITION. PATIENT SAID SHE IS LEGALLY BLIND, ANALIA SERNA MADE AWARE. CALL LIGHT WITHIN REACH AND INSTRUCTED. VERBALIZED UNDERSTANDING.
[2019-05-06 20:00] VITALS: BP 116/54
[2019-05-06] MEDS: CHOLECALCIFEROL 1,000 UNIT TABLET (VIT D3) PO SCH (21:00)
[2019-05-06] MEDS: ASPIRIN EC 81 MG TABLET.DR PO SCH (21:00)
[2019-05-06] MEDS ORDERED: IPRATROPIUM NEB FS 0.5 MG/2.5 ML AMPUL.NEB NEB PRN (21:00)
[2019-05-06] MEDS: FUROSEMIDE 20 MG TABLET PO SCH (21:00)
[2019-05-06] MEDS ORDERED: ALBUTEROL FS 2.5 MG/3 ML VIAL.NEB NEB PRN (21:00)
[2019-05-06] MEDS ORDERED: BENAZEPRIL HCL 20 MG TABLET PO SCH (22:00)
[2019-05-06] MEDS ORDERED: ATORVASTATIN 10 MG TABLET PO SCH (22:00)
[2019-05-06] MEDS ORDERED: BENAZEPRIL HCL 10 MG TABLET PO SCH (22:23)
[2019-05-06] MEDS: TRAMADOL HCL 50 MG TABLET PO PRN (22:31)
[2019-05-06] MEDS: PRAMIPEXOLE DI-HCL 0.25 MG TABLET PO SCH (22:32)
[2019-05-06] MEDS: GUAIFENESIN 300 MG/15 ML UDC PO PRN (22:33)
--- NOTE | 2019-05-06 23:10 | NUR ---
PATIENT COMPLAINED OF CHEST PAIN, CALLED PANCHO HARE, RECEIVED ORDERS AND CARRIED OUT. PATIENT IS A/O X4. WITH O2 AT 3L/MIN. EKG AND ABG STAT, ORDERED. TROPONIN STAT ORDERED.
[2019-05-06] MEDS ORDERED: NITROGLYCERIN 0.4 MG/TAB BOTTLE SL PRN (23:30)
[2019-05-06 23:55] VITALS: BP 94/34
--- NOTE | 2019-05-06 23:55 | NUR ---
RT NOTE PATIENT AWAKE, ALERT AND RESPONSIVE. PATIENT VERBALLY REFUSING ABG. PRIMARY NURSE NOTIFIED AND AWARE. NO RESPIRATORY DISTRESS NOTED AT THIS TIME. WILL CONTINUE TO MONITOR PATIENT.
[2019-05-07] VITALS: BP 94/54
--- NOTE | 2019-05-07 00:25 | NUR ---
PATIENT REFUSED THE ABG, INTERACTIVE MEDIA MARKETING SPECIALIST LOBO HARE AWARE. EKG RESULTS RELAYED TO INTERACTIVE MEDIA MARKETING SPECIALIST LOBO HARE. PATIENT'S CHEST PAIN IS GETTING BETTER NOW ACCORDING TO THE PATIENT. BP=94/34 HR= 73, NITROGLYCERINE TAB SL HELD FOR LOW BP LOBO HARE AWARE. INTERACTIVE MEDIA MARKETING SPECIALIST ORDERED TROPONIN AND REPEAT EKG AT 0500.
[2019-05-07 04:00] VITALS: BP_SYST 112; BP_SYST 99; BP_DIAS 53; BP_DIAS 54
[2019-05-07] MEDS ORDERED: NITROGLYCERIN 0.4 MG/TAB BOTTLE SL PRN (04:00)
--- NOTE | 2019-05-07 05:06 | NUR ---
RN CLOSING NOTES: PATIENT IN BED, A/O X4. WITH O2 AT 3L/MIN. CALL LIGHT WITHIN REACH. KEPT CLEAN AND DRY. PATIENT ABLE TO MOVE INDEPENDENTLY IN BED. PATIENT IS BEDREST. BED ALARM ON. BED IN LOWEST AND LOCKED POSITION.TRAMADOL 1 TAB PO GIVEN AT 2231, PAIN RELIEVED.PATIENT IS LEGALLY BLIND. PATIENT IS RESTING COMFORTABLY IN BED AT THIS TIME. PATIENT REQUESTED 2 PUDDING LAST NIGHT, GIVEN AND CONSUMED 100%, AND ANOTHER 2 PUDDING AGAIN FEW HOURS AGO, CONSUMED 100%. NO COMPLAIN OF CHEST PAIN AT THIS TIME. SCREENING FOR MRSA NASAL SWAB DONE. ACCORDING TO THE PATIENT, SHE WAS HOSPITALIZED 2WEEKS AGO IN [facility] FOR LUNG PROBLEM, CAN'T REMEMBER THE DETAILS.
--- NOTE | 2019-05-07 06:26 | NUR ---
REPEATED EKG DONE TODAY,RESULTS RELAYED TO PANCHO [facility]ARE. PT EVAL TODAY ORDERED.
[2019-05-07 08:02] LABS: ALANINE AMINOTRANSFERASE 49 U/L (12-78); ALBUMIN 2.9 g/dL (3.4-5.0); ALKALINE PHOSPHATASE 134 U/L (46-116); ASPARTATE AMINOTRANSFERASE 49 U/L (15-37); BILIRUBIN,TOTAL 0.3 mg/dL (0.2-1.0); CALCIUM, SERUM 8.7 mg/dL (8.5-10.1); CARBON DIOXIDE 28 mmol/L (21-32); CHLORIDE 104 mmol/L (98-107); CREATININE 1.5 mg/dL (0.6-1.3); GLUCOSE 102 mg/dL (74-106); POTASSIUM 4.3 mmol/L (3.5-5.1); SODIUM SERUM 141 mmol/L (136-145); TOTAL PROTEIN, SERUM 6.4 g/dL (6.4-8.2); UREA NITROGEN, BLOOD 33 mg/dL (7-18)
[2019-05-07 08:06] LABS: CHOLESTEROL 161 mg/dL (<200); HDL CHOLESTEROL 74 mg/dL (40-60); LDL 69 mg/dL (0-99); THYROID STIMULATING HORMONE 3.046 uIU/mL (0.358-3.74); TRIGLYCERIDES 106 mg/dL (30-150)
[2019-05-07 08:17] VITALS: BP 104/53
--- NOTE | 2019-05-07 08:20 | NUR ---
ms rn received on bed, awake,alert oriented x4,not in any form of distress, respirations even and unlabored,no sob noted.
[2019-05-07] MEDS ORDERED: POTASSIUM CHLORIDE 20 MEQ POWDER PACKET PO SCH (09:00)
--- NOTE | 2019-05-07 10:00 | NUR ---
ms prieto breakfast served,due meds given,tolerated.
[2019-05-07] MEDS: PANTOPRAZOLE 40 MG TABLET.DR PO SCH (10:20)
[2019-05-07] MEDS: CHOLECALCIFEROL 1,000 UNIT TABLET (VIT D3) PO SCH (10:21)
[2019-05-07] MEDS: FUROSEMIDE 20 MG TABLET PO SCH (10:21)
[2019-05-07] MEDS: ASPIRIN EC 81 MG TABLET.DR PO SCH (10:21)
[2019-05-07] MEDS: TRAMADOL HCL 50 MG TABLET PO PRN ×2 (10:29→22:20)
[2019-05-07] MEDS: GUAIFENESIN 300 MG/15 ML UDC PO PRN (10:29)
[2019-05-07 11:56] LABS: BASOPHILS # (AUTO) 0.1 /CMM (0.0-0.2); BASOPHILS % (AUTO) 1.3 % (0.0-2.0); HEMATOCRIT 40 % (33-45); LYMPHOCYTES # (AUTO) 0.9 /CMM (0.8-4.8); LYMPHOCYTES % (AUTO) 23.1 % (20.0-44.0); MEAN CORPUSCULAR HGB CONC 32 g/dl (31.0-36.0); MEAN CORPUSCULAR VOLUME 86 fL (82-100); MONOCYTES # (AUTO) 0.8 /CMM (0.1-1.30); MONOCYTES % (AUTO) 19.7 % (2.0-12.0); NEUTROPHILS # (AUTO) 2.2 /CMM (1.8-8.9); NEUTROPHILS % (AUTO) 54.9 % (43.0-81.0); PLATELET COUNT (AUTO) 186 /CMM (150-450); RED BLOOD CELL COUNT(AUTO) 4.71 MIL/uL (4.0-5.2)
--- NOTE | 2019-05-07 13:00 | NUR ---
ms rn was seen by dr. diana ibrahim/ orders made and carried out.
--- NOTE | 2019-05-07 15:51 | NUR ---
RT NOTE PT REFUSED ABG. RN NOTIFIED AND SPOKE TO PT.
[2019-05-07 16:05] VITALS: BP 110/61
--- NOTE | 2019-05-07 17:35 | NUR ---
ms rn patient refused abg earlier,on bed,no distress noted.
[2019-05-07 20:00] VITALS: BP 94/60
[2019-05-07 21:24] VITALS: BP 94/48
[2019-05-07] MEDS ORDERED: MELATONIN 3 MG PO SCH (22:00)
[2019-05-07] MEDS: PRAMIPEXOLE DI-HCL 0.25 MG TABLET PO SCH (22:19)
[2019-05-07] MEDS: ATORVASTATIN 10 MG TABLET PO SCH (22:20)
--- NOTE | 2019-05-07 22:23 | NUR ---
PATIENT IN BED, AWAKE A/O X4. COMPLAINED OF PAIN 5/10 LEVEL GEN PAIN. TRAMADOL 1TAB PO GIVEN. HOB ELEVATED. WITH O2 AT 2L/MIN. NO SOB NOTED. PATIENT IS ABLE TO TURN HERSELF AND CHANGE POSITIONS IN BED BY HERSELF. RT CAME AT AROUND 1999 OR LATER AND INFORMED HIM OF PATIENT IS REQUESTING A BREATHING TREATMENT. PATIENT SAID THAT SHE DIDN'T GET ANY TREATMENTS. WILL CALL AGAIN.
[2019-05-08] VITALS: BP 99/30
[2019-05-08 00:52] VITALS: BP 99/30
[2019-05-08 04:16] VITALS: BP 96/49
[2019-05-08 05:00] VITALS: BP 96/49
[2019-05-08 08:00] VITALS: BP 107/58
--- NOTE | 2019-05-08 08:00 | NUR ---
[employer] OPERATOR NOTES PATIENT IN BED RESTING NO SOB OR ACUTE DISTRESS NOTED. PATIENT ALERT, ORIENTED X3. PERIPHERAL IV INTACT PATENT. BED IN LOW LOCKED POSITION. WILL CONTINUE TO MONITOR.
[2019-05-08] MEDS: CHOLECALCIFEROL 1,000 UNIT TABLET (VIT D3) PO SCH (08:19)
[2019-05-08] MEDS: PANTOPRAZOLE 40 MG TABLET.DR PO SCH (08:19)
[2019-05-08] MEDS: ASPIRIN EC 81 MG TABLET.DR PO SCH (08:19)
[2019-05-08] MEDS: FUROSEMIDE 20 MG TABLET PO SCH (08:19)
[2019-05-08] MEDS: TRAMADOL HCL 50 MG TABLET PO PRN ×2 (08:26→21:19)
[2019-05-08] MEDS: POTASSIUM CHLORIDE 10 MEQ TABLET.SA PO SCH (09:28)
--- NOTE | 2019-05-08 15:30 | NUR ---
MS RN NOTES PATIENT RETURNED FROM RADIOLOGY.
[2019-05-08 16:00] VITALS: BP 103/52
--- NOTE | 2019-05-08 16:00 | NUR ---
MS RN NOTES PATIENT HAD A BIG DM NOTED STOOL TO BE SOFT.
--- NOTE | 2019-05-08 16:48 | NUR ---
MS RN NOTES ICE CHIPS PROVIDED FOR COMFORT.
--- NOTE | 2019-05-08 19:30 | NUR ---
MS RN NOTES PATIENT IN BED RESTING NO SOB OR ACUTE DISTRESS NOTED. ALL DUE MEDICATIONS ADMINISTERED. ALL NEEDS MET. NO ACUTE CHANGES NOTED DURING SHIFT. ENDORSED CARE TO PM SHIFT.
--- NOTE | 2019-05-08 19:35 | NUR ---
MS RN OPENING NOTES PATIENT RECEIVED RESTING IN BED, A/O X4. ON 2L O2 VIA NC BREATHING EVEN AND UNLABORED, NO SOB NOTED. NO SIGNS OF ACUTE DISTRESS. COMPLAINTS OF PAIN AND DISCOMFORT. IV LOCATED ON RIGHT HAND #22 SL. SAFETY PRECAUTIONS IN PLACE WITH BED IN LOWEST POSITION, LOCKED, CALL LIGHT WITHIN REACH, AND BREAKS. WILL CONTINUE TO MONITOR.
--- NOTE | 2019-05-08 19:40 | NUR ---
MS RN NOTES PATIENT FEELING PAIN, REMOVED TRAMADOL- BUT PT REFUSED, WANTS IT LATER. WASTED MEDICATION RN MADHAVI WITNESS.
--- NOTE | 2019-05-08 19:50 | NUR ---
MS RN NOTES PATIENT STATED SHE IS FEELING PAIN, OFFERED TRAMADOL PRN- BUT PATIENT REQUESTED FOR TYLENOL. CALLED DR. HAAS'S OFFICE DATA ENTRY CLERK LING ORDERED FOR MOTRIN 600 MG Q6 PRN.
--- NOTE | 2019-05-08 20:00 | NUR ---
MS RN NOTES PATIENT REFUSED VITALS. NO SIGNS OF ACUTE DISTRESS. WILL CONTINUE TO MONITOR.
[2019-05-08] MEDS: IBUPROFEN 600 MG TABLET PO PRN (20:02)
[2019-05-08] MEDS ORDERED: Z GUARD REMEDY 2 OZ OINT TP PRN (21:00)
[2019-05-08] MEDS: PRAMIPEXOLE DI-HCL 0.25 MG TABLET PO SCH (21:19)
[2019-05-08] MEDS: ATORVASTATIN 10 MG TABLET PO SCH (21:19)
--- NOTE | 2019-05-09 06:26 | NUR ---
MS RN CLOSING NOTES Patient currently resting in bed A/O x4. On 2L O2 via nc breathing even and unlabored, no sob noted. No signs of acute distress. No complaints of pain or discomfort. IV located On R hand #22 SL. Patient was kept clean and dry throughout the night, all needs attended to. Safety precautions in place with bed in lowest position, breaks on, side rails up x2, and call light within reach. Will endorse to oncoming shift about lavell.
--- NOTE | 2019-05-09 07:52 | NUR ---
MS/RN OPENING NOTE Patient received resting in bed, A/O x4, showing no signs of acute distress or SOB, saturating well on RA, O2 2L NC at the bedside PRN. IV line is clean and intact s/l. Patient has no complaints of pain at this time. Patient is ambulatory with assistance. Bed is in lowest position, side rails x2 in upright position, call light is within reach and patient is aware of how to call for assistance when needed. Will continue with plan of care.
[2019-05-09 08:00] VITALS: BP 124/64
[2019-05-09] MEDS: ASPIRIN EC 81 MG TABLET.DR PO SCH (09:13)
[2019-05-09] MEDS: POTASSIUM CHLORIDE 10 MEQ TABLET.SA PO SCH (09:13)
[2019-05-09] MEDS: CHOLECALCIFEROL 1,000 UNIT TABLET (VIT D3) PO SCH (09:13)
[2019-05-09] MEDS: GUAIFENESIN 300 MG/15 ML UDC PO PRN (09:13)
[2019-05-09] MEDS: PANTOPRAZOLE 40 MG TABLET.DR PO SCH (09:14)
[2019-05-09] MEDS: FUROSEMIDE 20 MG TABLET PO SCH (09:14)
[2019-05-09 16:00] VITALS: BP 136/61
[2019-05-09] MEDS: IBUPROFEN 600 MG TABLET PO PRN (17:18)
--- NOTE | 2019-05-09 18:56 | NUR ---
MS/RN CLOSING NOTE Patient is resting in bed, A/O x4, showing no signs of acute distress or SOB, saturating 2L NC. IV line is clean and intact s/l. Patient is on bedrest and uses the diaper. All patient needs met, all due meds given. Zee WATSON'd per MD request. Bed is in lowest position, side rails x2 in upright position, call light is within reach and patient is aware of how to call for assistance when needed. Safety precautions enforced. Will continue with plan of care.
--- NOTE | 2019-05-09 19:14 | NUR ---
CHANGE OF SHIFT REPORT Patient in bed, awake. On supplemental Oxygen at 2LPM via NC, tolerating well, denies shortness of breath at rest and with exertion. Appears comfortable in bed, feels OK and wants to rest. Safety measure in place, verbalized understanding.
[2019-05-09] MEDS: PRAMIPEXOLE DI-HCL 0.25 MG TABLET PO SCH (21:46)
[2019-05-09] MEDS: ATORVASTATIN 10 MG TABLET PO SCH (21:46)
[2019-05-09] MEDS: TRAMADOL HCL 50 MG TABLET PO PRN (21:52)
--- NOTE | 2019-05-10 06:16 | NUR ---
END OF SHIFT REPORT Patient in bed, remains on supplemental Oxygen at 2LPM via NC, tolerating well. Back pain managed with PRN Tramadol. Refused VS, education provided, uncooperative. Denies chest pain, no c/o nausea, vomiting. Plan discharge to SNF, will endorse to Oncoming RN.
[2019-05-10 07:53] LABS: CALCIUM, SERUM 8.4 mg/dL (8.5-10.1); CREATININE 1.3 mg/dL (0.6-1.3); POTASSIUM 4.2 mmol/L (3.5-5.1)
[2019-05-10 08:00] VITALS: BP 99/52
[2019-05-10] MEDS: PANTOPRAZOLE 40 MG TABLET.DR PO SCH (08:34)
[2019-05-10] MEDS: FUROSEMIDE 20 MG TABLET PO SCH (08:34)
[2019-05-10] MEDS: ASPIRIN EC 81 MG TABLET.DR PO SCH (08:34)
[2019-05-10] MEDS: POTASSIUM CHLORIDE 10 MEQ TABLET.SA PO SCH (08:34)
[2019-05-10] MEDS: CHOLECALCIFEROL 1,000 UNIT TABLET (VIT D3) PO SCH (08:34)
[2019-05-10] MEDS: Z GUARD REMEDY 4 OZ OINT TP SCH (08:35)
[2019-05-10 12:00] VITALS: BP 102/58
[2019-05-10] MEDS: TRAMADOL HCL 50 MG TABLET PO PRN (16:47)
[2019-05-10 19:30] VITALS: BP 104/56
--- NOTE | 2019-05-10 19:46 | NUR ---
MS RN NOTES PATIENT IN BED, AWAKE, ALERT AND ORIENTED X 3. BREATHING EVEN AND UNLABORED ON 2L NC. SHOWS NO SIGNS OF ACUTE RESPIRATORY DISTRESS, NO ACUTE PAIN. IV ON R HAND #22G. SHOWS NO SIGNS OF INFILTRATION, NO REDNESS. SAFETY PRECAUTIONS IN PLACE. BED IN LOWEST POSITION, LOCKED, AND CALL LIGHT KEPT WITHIN REACH. WILL CONTINUE TO MONITOR.
[2019-05-10 20:23] VITALS: BP 107/61
[2019-05-10] MEDS: ATORVASTATIN 10 MG TABLET PO SCH (21:06)
[2019-05-10] MEDS: PRAMIPEXOLE DI-HCL 0.25 MG TABLET PO SCH (21:07)
[2019-05-11] MEDS: TRAMADOL HCL 50 MG TABLET PO PRN ×2 (04:09→19:37)
--- NOTE | 2019-05-11 06:34 | NUR ---
MS RN NOTES PATIENT IN BED, ASLEEP, ALERT AND ORIENTED X 3. BREATHING EVEN AND UNLABORED ON 2L NC. SHOWS NO SIGNS OF ACUTE RESPIRATORY DISTRESS, NO ACUTE PAIN. IV ON R HAND #22G. SHOWS NO SIGNS OF INFILTRATION, NO REDNESS. SAFETY PRECAUTIONS IN PLACE. ALL DUE MEDICATIONS GIVEN. BED IN LOWEST POSITION, LOCKED, AND CALL LIGHT KEPT WITHIN REACH. WILL ENDORSE TO ONCOMING NURSE.
--- NOTE | 2019-05-11 08:00 | NUR ---
m/s net developer with [facility]: md visit seen and examined by dr. ortiz at this time and updated pt re: plan of care.
[2019-05-11 08:27] VITALS: BP 110/68
[2019-05-11] MEDS: POTASSIUM CHLORIDE 10 MEQ TABLET.SA PO SCH (08:27)
[2019-05-11] MEDS: ASPIRIN EC 81 MG TABLET.DR PO SCH (08:27)
[2019-05-11] MEDS: PANTOPRAZOLE 40 MG TABLET.DR PO SCH (08:27)
[2019-05-11] MEDS: FUROSEMIDE 20 MG TABLET PO SCH (08:27)
[2019-05-11] MEDS: CHOLECALCIFEROL 1,000 UNIT TABLET (VIT D3) PO SCH (08:27)
[2019-05-11] MEDS: Z GUARD REMEDY 4 OZ OINT TP SCH (08:28)
[2019-05-11] MEDS: LOSARTAN POTASSIUM 50 MG TABLET PO SCH (11:40)
--- NOTE | 2019-05-11 11:45 | NUR ---
m/s manager chemistry: notes son visiting at this time. lunch served. instructed to call for assistance. will monitor.
--- NOTE | 2019-05-11 13:00 | NUR ---
m/s jaw skinner: notes son remains at bedside. pt ate lunch. no distress noted. instructed to call for assistance.
--- NOTE | 2019-05-11 15:00 | NUR ---
m/s membership sales manager: notes resting comfortable in bed. no distress noted. instructed to call for assistance.
--- NOTE | 2019-05-11 18:30 | NUR ---
m/s billboard poster: notes lying comfortable in bed at this time. needs attended. in no apparent distress noted. call light within reach.
--- NOTE | 2019-05-11 19:07 | NUR ---
m/s tableau analyst: notes bedside report given to rao (rn) for continuity of care.
--- NOTE | 2019-05-11 19:10 | NUR ---
MS RN OPENING NOTES Received patient A/O x3, awake on sidelying position on bed. On O2 inhalation via NC @ 2LPM, saturating well. Refusing v/s check. Kept on bed clean, dry and comfortable. On fall and aspiration precautions. Call light within easy reach. Will continue to monitor accordingly.
[2019-05-11] MEDS: PRAMIPEXOLE DI-HCL 0.25 MG TABLET PO SCH (21:15)
[2019-05-11] MEDS: ATORVASTATIN 10 MG TABLET PO SCH (21:16)
[2019-05-11] MEDS: MICONAZOLE NITRATE VAG CREAM 45 GM TUBE VG SCH (21:17)
--- NOTE | 2019-05-12 06:45 | NUR ---
MS RN CLOSING NOTES Patient asleep, easily awaken. On O2 inhalation via NC, no SOB/respiratory distress noted. No s/sx of discomfort noted at this time. Due meds given as ordered, no ASE noted. All nursing needs attended, no new complaints made. Kept on bed clean, dry and comfortable. On fall and aspiration precautions. Call light within easy reach. Endorsed.
--- NOTE | 2019-05-12 08:00 | NUR ---
m/s back up scan coordinator: initial assessment received pt in bed awake, a/ox4. ambulatory. no c/o pain or any discomfort. instructed to call for assistance.
[2019-05-12 08:22] VITALS: BP 108/55
[2019-05-12] MEDS: POTASSIUM CHLORIDE 10 MEQ TABLET.SA PO SCH (08:23)
[2019-05-12] MEDS: ASPIRIN EC 81 MG TABLET.DR PO SCH (08:23)
[2019-05-12] MEDS: FUROSEMIDE 20 MG TABLET PO SCH (08:23)
[2019-05-12] MEDS: CHOLECALCIFEROL 1,000 UNIT TABLET (VIT D3) PO SCH (08:23)
[2019-05-12] MEDS: LOSARTAN POTASSIUM 50 MG TABLET PO SCH (08:23)
[2019-05-12] MEDS: PANTOPRAZOLE 40 MG TABLET.DR PO SCH (08:23)
[2019-05-12] MEDS: Z GUARD REMEDY 4 OZ OINT TP SCH (08:27)
[2019-05-12] MEDS: TRAMADOL HCL 50 MG TABLET PO PRN ×2 (08:27→21:27)
--- NOTE | 2019-05-12 10:00 | NUR ---
m/s fire extinguisher charger: notes lying comfortable in bed. no distress noted. will monitor.
--- NOTE | 2019-05-12 13:45 | NUR ---
m/s ice cream vendor: notes resting comfortable in bed. no distress noted. call light within reach.
--- NOTE | 2019-05-12 16:00 | NUR ---
m/s electronics supervisor: notes in bed resting comfortable in bed. no distress noted. will continue to monitor.
--- NOTE | 2019-05-12 18:50 | NUR ---
m/s telemetry registered nurse: notes in bed sounds asleep. no distress noted. will continue to monitor.
--- NOTE | 2019-05-12 19:05 | NUR ---
m/s beef cattle grazier: notes bedside report given to lor (conner) for continuity of care.
--- NOTE | 2019-05-12 19:10 | NUR ---
MS/RN OPENING NOTES: Received patient sleeping in bed comfortably. A/Ox4. On room air, saturating well. Breathing even and unlabored. No SOB noted, no s/s of distress noted. IV access present on the R hands #22g intact and patent. On fall and aspiration precautions. Safety measures are in place, bed in low, locked position. Call light within easy reach. Will continue to monitor patient accordingly.
--- NOTE | 2019-05-12 20:00 | NUR ---
MS/RN NOTES: PATIENT REFUSED TO HAVE HER VITAL SIGNS TAKEN. PER PATIENT "IT HURTS AND IT'S UNCOMFORTABLE. MY BP WILL NOT CHANGE NO MATTER WHAT." EDUCATED PATIENT ABOUT RISKS AND BENEFITS X3. STILL INSISTED ON REFUSAL. WILL CONTINUE MONITORING.
--- NOTE | 2019-05-12 20:00 | NUR ---
MS/RN NOTES: PATIENT REFUSED VITAL SIGNS. EDUCATED ABOUT RISKS AND BENEFITS 3X. STILL REFUSED. WILL CONTINUE MONITORING. Addendum: 05/13/19 at 0506 by AZALEA DIMAS RN Amended: Links added.
[2019-05-12] MEDS: ATORVASTATIN 10 MG TABLET PO SCH (21:16)
[2019-05-12] MEDS: PRAMIPEXOLE DI-HCL 0.25 MG TABLET PO SCH (21:16)
[2019-05-12] MEDS: GUAIFENESIN 300 MG/15 ML UDC PO PRN (21:26)
[2019-05-12] MEDS: MICONAZOLE NITRATE VAG CREAM 45 GM TUBE VG SCH (22:51)
[2019-05-13] MEDS: GUAIFENESIN 300 MG/15 ML UDC PO PRN ×2 (05:22→20:16)
--- NOTE | 2019-05-13 06:35 | NUR ---
MS/RN CLOSING NOTES: PATIENT IS IN STABLE CONDITION. SLEEPING IN BED COMFORTABLY. REMAINS A/OX4. VERBALLY RESPONSIVE AND ABLE TO MAKE NEEDS KNOWN. ON 2L OF OXYGEN VIA NC. NO SOB NOTED, NO S/S OF ACUTE DISTRESS. NO COMPLAINS OF PAIN AT THIS TIME. ALL DUE MEDS GIVEN ORDERED. ALL NEEDS ATTENDED AND MET. IV ACCESS ON THE RIGHT HAND #22G INTACT AND PATENT. SAFETY MEASURES KEPT IN PLACE. BED IN LOW, LOCKED POSITION WITH SR UP X2. KEPT PT CLEAN AND DRY AT ALL TIMES. KEPT PT WARM AND COMFORTABLE THROUGHOUT THE SHIFT. WILL ENDORSE TO DAY SHIFT NURSE FOR JUNI.
--- NOTE | 2019-05-13 07:51 | NUR ---
MS RN OPENING NOTE PATIENT IN BED RESTING COMFORTABLY. PATIENT IN NO ACUTE DISTRESS. NO SOB NOTED. PATIENT BREATHING IS EVEN AND UNLABORED. PATIENT BED ALARM IS ON. PATIENT SAFETY PRECAUTIONS IN PLACE. PATIENT BED IS LOCKED AND IN LOWEST POSITION. CALL LIGHT WITHIN REACH. WILL CONTINUE TO MONITOR.
[2019-05-13 08:00] VITALS: BP 96/50
[2019-05-13] MEDS: PANTOPRAZOLE 40 MG TABLET.DR PO SCH (08:31)
[2019-05-13] MEDS: FUROSEMIDE 20 MG TABLET PO SCH (08:31)
[2019-05-13] MEDS: ASPIRIN EC 81 MG TABLET.DR PO SCH (08:31)
[2019-05-13] MEDS: CHOLECALCIFEROL 1,000 UNIT TABLET (VIT D3) PO SCH (08:31)
[2019-05-13] MEDS: Z GUARD REMEDY 4 OZ OINT TP SCH (08:31)
[2019-05-13 08:33] VITALS: BP 99/58
[2019-05-13] MEDS: POTASSIUM CHLORIDE 10 MEQ TABLET.SA PO SCH (08:33)
[2019-05-13] MEDS: LOSARTAN POTASSIUM 50 MG TABLET PO SCH (08:33)
[2019-05-13] MEDS: TRAMADOL HCL 50 MG TABLET PO PRN (08:38)
--- NOTE | 2019-05-13 18:41 | NUR ---
MS RN CLOSING NOTE PATIENT IN BED RESTING COMFORTABLY. PATIENT IN NO ACUTE DISTRESS. NO SOB NOTED. PATIENT BREATHING IS EVEN AND UNLABORED. PATIENT IV STILL IN PLACE AND PATENT. PATIENT ID BAND IN PLACE. PATIENT SKIN ASSESSED, NO NEW SKIN BREAKDOWN NOTED. DC INSTRUCTIONS PROVIDED, PATIENT VERBALIZED UNDERSTANDING. PATIENT SIGNED BELONGINGS LIST AND ACKNOWLEDGED AND HAS BELONGINGS WITH HER. PATIENT IS GOING TO THE [facility]. PATIENT REPORTED PICKUP TIME FROM AMBULANCE IS 2029. REPORT GIVEN TO LAUREEN CASTAÑEDA AT THE [facility]. PATIENT BED IS LOCKED AND IN LOWEST POSITION. CALL LIGHT WITHIN REACH. SAFETY PRECAUTIONS IN PLACE. MD AWARE OF DISCHARGE. WILL ENDORSE CARE AND DISCHARGE TO FORESTRY EXTENSION SPECIALIST FOR JUNI.
--- NOTE | 2019-05-13 19:32 | NUR ---
MS/RN OPENING NOTES: PATIENT IS IN STABLE CONDITION. RESTING IN BED COMFORTABLY. REMAINS A/OX4. VERBALLY RESPONSIVE AND ABLE TO MAKE NEEDS KNOWN. ON 2L OF OXYGEN VIA NC. NO SOB NOTED, NO S/S OF ACUTE DISTRESS. NO COMPLAINS OF PAIN AT THIS TIME. ALL DUE MEDS GIVEN ORDERED. ALL NEEDS ATTENDED AND MET. IV ACCESS ON THE RIGHT HAND REMOVED. READY FOR DISCHARGE AT 2030 TO GO TO THE [facility]. REPORT GIVEN TO LAUREEN RN BY DAISY SCHRADER SHIFT RN. ALL BELONGINGS LIST SIGNED AND PT ACKNOWLEDGE SHE HAS ALL HER BELONGINGS. SAFETY MEASURES KEPT IN PLACE. BED IN LOW, LOCKED POSITION WITH SR UP X2. KEPT PT CLEAN AND DRY AT ALL TIMES. KEPT PT WARM AND COMFORTABLE THROUGHOUT THE SHIFT. WILL CONTINUE TO MONITOR PT. ACCORDINGLY.
--- NOTE | 2019-05-13 20:51 | NUR ---
MS/WAGE ANALYST NOTES: PT. REMAINS A/OX4. VERBALLY RESPONSIVE AND ABLE TO MAKE NEEDS KNOWN. ON 2L OF OXYGEN VIA NC. NO SOB NOTED, NO S/S OF ACUTE DISTRESS. NO COMPLAINS OF PAIN AT THIS TIME. ALL NEEDS ATTENDED AND MET. NO IV ACCESS. ID BAND REMOVED. REPORT GIVEN TO CLAIMS SUPERVISOR FROM [facility]. ALL BELONGINGS WITH THE PATIENT. ALL EDUCATION INFORMATION GIVEN TO THE PATIENT. PATIENT LEFT THE UNIT AT 2050 IN STABLE CONDITION.
== END 2019-05-13 20:50 | DRG 280 ==
LOC: ER 12:40 → TELE 18:32 → MED 05-08 08:56
PROVIDERS: ADMIT Internal Medicine; ATTEND Internal Medicine
DX: I21.4 Non-ST elevation (NSTEMI) myocardial infarction (principal); I50.33 Acute on chronic diastolic (congestive) heart failure; N17.9 Acute kidney failure, unspecified; Z68.41 Body mass index [BMI] 40.0-44.9, adult; J98.11 Atelectasis; J84.9 Interstitial pulmonary disease, unspecified; I13.0 Hypertensive heart and chronic kidney disease with heart failure and stage 1 through stage 4 chronic kidney disease, or unspecified chronic kidney disease; I25.10 Atherosclerotic heart disease of native coronary artery without angina pectoris; E78.5 Hyperlipidemia, unspecified; J44.9 Chronic obstructive pulmonary disease, unspecified; E66.01 Morbid (severe) obesity due to excess calories; R05 Cough; T46.4X5A Adverse effect of angiotensin-converting-enzyme inhibitors, initial encounter; Y92.89 Other specified places as the place of occurrence of the external cause; K21.9 Gastro-esophageal reflux disease without esophagitis; G47.62 Sleep related leg cramps; G20 Parkinson's disease; R53.1 Weakness; R53.81 Other malaise; Z98.61 Coronary angioplasty status; N18.9 Chronic kidney disease, unspecified; I35.1 Nonrheumatic aortic (valve) insufficiency
CPT/HCPCS: 36415; 70220-TC; 71045-TC; 76770-TC; 80048-TC; 80053-TC; 80061-TC; 80076-TC; 81000-TC; 82728-TC; 83880; 84443-TC; 84484-TC; 85025-TC; 87081-TC; 93307-TC; 94799-TC; 97116-TC; 97530-TC; G0378; J7030

== ENCOUNTER 2019-11-16 10:49 | Emergency (ER) | payer MEDICARE, OTHER ==
[~2019-11-16] VITALS: Ht 147.3 cm; Wt 92.5 kg
[~2019-11-16 10:49] MED LIST changes: -ASPI-1152 PO; +ASPI-1420 PO; +BENA20TA9 PO; +CETI5TAB6 PO; +CHOL100040 PO; -DICL100G16 TP; -ERGO500014 PO; -ESOM40CA PO; -FERR325T6 PO; +FURO-144 PO; +GUAI100S11 PO; +MAGN400O6 PO; +MELA3TAB41 PO; +OMEP20CA15 PO; +POTA-10 PO; -POTA20TA83 PO; -TRAM50TA2 PO; -TRAZ-182 PO; +UMEC1BLS IH
--- NOTE | 2019-11-16 12:00 | NUR ---
COVID RESULT: NEGATIVE
--- NOTE | 2019-11-16 12:02 | NUR ---
CALLED [facility] FOR TRANSPORT TO [facility]. ETA [phone].
--- NOTE | 2019-11-16 14:29 | NUR ---
PT TRANSPORTED TO BACK TO HER FACILITY VIA AMBULANCE WITH 2 AMBULANCE STAFF. REPORT GIVEN. PT IS IN STABLE CONDITIION FOR TRANSPORT BACK TO HER FACILITY. PT IS IN STABLE CONDITION FOR TRANSPORT. NAD. PT IS AMBULATORY ON [facility]
[2019-11-16 14:32] VITALS: BP 143/68
== END 2019-11-16 14:33 ==
LOC: ER 10:53
DX: Z03.818 Encounter for observation for suspected exposure to other biological agents ruled out (principal); G20 Parkinson's disease; I10 Essential (primary) hypertension; Z95.5 Presence of coronary angioplasty implant and graft